=== PATIENT | male | born 1950 | race Caucasian/White ===

== ENCOUNTER 2017-12-28 15:29 | Inpatient (IN) | payer OTHER, MEDICARE ==
[~2017-12-28] VITALS: Ht 175.3 cm; Wt 94.4 kg
[2017-12-28 15:49] VITALS: BP 148/76; PULSE 66; RESP 17; TEMP 98.6; O2SAT 98
--- NOTE | 2017-12-28 16:12 | PD ---
HPI . Cook Act Chief Complaint: Psychiatric Symptoms Time Seen by Provider: 15:42 Travel History International Travel<30 days: No Contact w/Intl Traveler<30days: No Traveled to known affect area: No History of Present Illness HPI This patient presents to us as a Cook Act. He states that he took 17 Aleve this morning. He states that he subsequently called the police himself about an hour later because he "became paranoid." He reports depression in the recent past. He knows of no modifying factors. He reports that he is no longer suicidal [facility] Social History Tobacco Use: No Allergies-Medications (Allergen,Severity, Reaction): Coded Allergies: No Known Allergies (Unverified , 12/28/17) Review of Systems Except as stated in HPI: all other systems reviewed are Neg Physical Exam Narrative GENERAL: Awake and alert and in no acute distress. SKIN: Warm and dry. HEAD: Normocephalic/atraumatic. EYES: Pupils are equal. Extraocular movements are intact. NECK: Normal range of motion. CARDIOVASCULAR: Regular rate and rhythm. RESPIRATORY: Nonlabored respirations. MUSCULOSKELETAL: Atraumatic. NEUROLOGICAL: Nonfocal. PSYCHIATRIC: Good eye contact with the examiner. Does not appear to be responding to any internal stimuli. Data Data Last Documented VS Vital Signs Date Time Temp Pulse Resp B/P (MAP) Pulse Ox O2 Delivery O2 Flow Rate FiO2 12/28/17 15:49 98.6 66 17 148/76 (100) 98 Orders Orders Complete Blood Count With Diff (12/28/17 15:42) Comprehensive Metabolic Panel (12/28/17 15:42) Thyroid Stimulating Hormone (12/28/17 15:42) Psych Screen (12/28/17 15:42) Drug Screen, Random Urine (12/28/17 15:42) Alcohol (Ethanol) (12/28/17 15:42) Ns (Bolus) Inj (12/28/17 17:15) Labs Laboratory Tests Test 12/28/17 16:24 White Blood Count 13.3 TH/MM3 Red Blood Count 4.76 MIL/MM3 Hemoglobin 13.5 GM/DL Hematocrit 39.2 % Mean Corpuscular Volume 82.4 FL Mean Corpuscular Hemoglobin 28.4 PG Mean Corpuscular Hemoglobin Concent 34.5 % Red Cell Distribution Width 14.4 % Platelet Count 260 TH/MM3 Mean Platelet Volume 9.5 FL Neutrophils (%) (Auto) 86.9 % Lymphocytes (%) (Auto) 6.0 % Monocytes (%) (Auto) 6.4 % Eosinophils (%) (Auto) 0.4 % Basophils (%) (Auto) 0.3 % Neutrophils # (Auto) 11.5 TH/MM3 Lymphocytes # (Auto) 0.8 TH/MM3 Monocytes # (Auto) 0.8 TH/MM3 Eosinophils # (Auto) 0.0 TH/MM3 Basophils # (Auto) 0.0 TH/MM3 CBC Comment DIFF FINAL Differential Comment Blood Urea Nitrogen 12 MG/DL Creatinine 1.39 MG/DL Random Glucose 106 MG/DL Total Protein 7.9 GM/DL Albumin 4.1 GM/DL Calcium Level 9.0 MG/DL Alkaline Phosphatase 78 U/L Aspartate Amino Transf (AST/SGOT) 16 U/L Alanine Aminotransferase (ALT/SGPT) 15 U/L Total Bilirubin 1.0 MG/DL Sodium Level 123 MEQ/L Potassium Level 3.5 MEQ/L Chloride Level 85 MEQ/L Carbon Dioxide Level 26.1 MEQ/L Anion Gap 12 MEQ/L Estimat Glomerular Filtration Rate 51 ML/MIN Thyroid Stimulating Hormone 3rd Gen 1.570 uIU/ML Ethyl Alcohol Level LESS THAN 3 MG/DL MDM Medical Decision Making Medical Screen Exam Complete: Yes Emergency Medical Condition: Yes Differential Diagnosis Differential diagnosis includes but is not limited to depression with suicidal gesture, suicide attempt, suicidal ideation, attention seeking behavior. Narrative Course This patient presents to us as a Cook Act because of a suicidal gesture. Medical clearance labs are in process. CBC & BMP Diagram 12/28/17 16:24 Total Protein 7.9, Albumin 4.1, Calcium Level 9.0, Alkaline Phosphatase 78, Aspartate Amino Transf (AST/SGOT) 16, Alanine Aminotransferase (ALT/SGPT) 15, Total Bilirubin 1.0 IV normal saline has been ordered. Diagnosis Primary Impression: Medical clearance for psychiatric admission Additional Impression: Hyponatremia Condition: Stable Lily Valente MD December 28, 2017 16:12
[2017-12-28 16:40] LABS: AUTOMATED NEUTROPHIL # 11.5 TH/MM3 (1.8-7.7); BASOPHIL % 0.3 % (0.0-2.0); EOSINOPHIL % 0.4 % (0.0-4.0); HEMATOCRIT 39.2 % (39.0-51.0); HEMOGLOBIN 13.5 GM/DL (13.0-17.0); LYMPHOCYTE # 0.8 TH/MM3 (1.0-4.8); MEAN CELL VOLUME 82.4 FL (80.0-100.0); MEAN CORPUSCULAR HEMOGLOBIN 28.4 PG (27.0-34.0); MEAN CORPUSCULAR HGB CONC 34.5 % (32.0-36.0); MEAN PLATELET VOLUME 9.5 FL (7.0-11.0); MONO % 6.4 % (0.0-8.0); MONOCYTE # 0.8 TH/MM3 (0-0.9); NEUT % 86.9 % (16.0-70.0); PLATELET COUNT 260 TH/MM3 (150-450); RED BLOOD COUNT 4.76 MIL/MM3 (4.50-5.90); RED CELL DISTRIBUTION WIDTH 14.4 % (11.6-17.2); WHITE BLOOD COUNT 13.3 TH/MM3 (4.0-11.0)
[2017-12-28 16:54] LABS: ALBUMIN 4.1 GM/DL (3.4-5.0); ALT (GPT) 15 U/L (12-78); AST (GOT) 16 U/L (15-37); BICARBONATE 26.1 MEQ/L (21.0-32.0); BLOOD UREA NITROGEN 12 MG/DL (7-18); CHLORIDE 85 MEQ/L (98-107); CREATININE 1.39 MG/DL (0.60-1.30); GLOMERULAR FILTRATION RATE 51 ML/MIN (>89); GLUCOSE,RANDOM 106 MG/DL (74-106)
[2017-12-28 17:05] LABS: ALKALINE PHOSPHATASE 78 U/L (45-117); TOTAL PROTEIN 7.9 GM/DL (6.4-8.2)
[2017-12-28 17:09] LABS: SODIUM (NA) 123 MEQ/L (136-145)
[2017-12-28] MEDS ORDERED: SODIUM CHLOR 0.9% 1000 ML INJ 1,000 ML IV ONE (17:15)
--- NOTE | 2017-12-28 18:00 | PD ---
Data Data Last Documented VS Vital Signs Date Time Temp Pulse Resp B/P (MAP) Pulse Ox O2 Delivery O2 Flow Rate FiO2 12/28/17 15:49 98.6 66 17 148/76 (100) 98 Orders Orders Complete Blood Count With Diff (12/28/17 15:42) Comprehensive Metabolic Panel (12/28/17 15:42) Thyroid Stimulating Hormone (12/28/17 15:42) Psych Screen (12/28/17 15:42) Drug Screen, Random Urine (12/28/17 15:42) Alcohol (Ethanol) (12/28/17 15:42) Sodium Chlor 0.9% 1000 Ml Inj (Ns 1000 M (12/28/17 17:15) Electrocardiogram (12/28/17 ) Labs Laboratory Tests Test 12/28/17 16:24 White Blood Count 13.3 TH/MM3 Red Blood Count 4.76 MIL/MM3 Hemoglobin 13.5 GM/DL Hematocrit 39.2 % Mean Corpuscular Volume 82.4 FL Mean Corpuscular Hemoglobin 28.4 PG Mean Corpuscular Hemoglobin Concent 34.5 % Red Cell Distribution Width 14.4 % Platelet Count 260 TH/MM3 Mean Platelet Volume 9.5 FL Neutrophils (%) (Auto) 86.9 % Lymphocytes (%) (Auto) 6.0 % Monocytes (%) (Auto) 6.4 % Eosinophils (%) (Auto) 0.4 % Basophils (%) (Auto) 0.3 % Neutrophils # (Auto) 11.5 TH/MM3 Lymphocytes # (Auto) 0.8 TH/MM3 Monocytes # (Auto) 0.8 TH/MM3 Eosinophils # (Auto) 0.0 TH/MM3 Basophils # (Auto) 0.0 TH/MM3 CBC Comment DIFF FINAL Differential Comment Blood Urea Nitrogen 12 MG/DL Creatinine 1.39 MG/DL Random Glucose 106 MG/DL Total Protein 7.9 GM/DL Albumin 4.1 GM/DL Calcium Level 9.0 MG/DL Alkaline Phosphatase 78 U/L Aspartate Amino Transf (AST/SGOT) 16 U/L Alanine Aminotransferase (ALT/SGPT) 15 U/L Total Bilirubin 1.0 MG/DL Sodium Level 123 MEQ/L Potassium Level 3.5 MEQ/L Chloride Level 85 MEQ/L Carbon Dioxide Level 26.1 MEQ/L Anion Gap 12 MEQ/L Estimat Glomerular Filtration Rate 51 ML/MIN Thyroid Stimulating Hormone 3rd Gen 1.570 uIU/ML Ethyl Alcohol Level LESS THAN 3 MG/DL MDM Supervised Visit with NICHOLAS: No Narrative Course The patient was initially evaluated by the previous provider and signed out to me at the beginning of my shift pending admission for hyponatremia. See her note for further details. Briefly this is a 67-year-old male who presents voluntarily after intentionally taking 17 Aleve at around 930 this morning with an intent to harm himself. He was Cook acted by the previous provider. He was found to have a sodium of 123. He denies alcohol use or abuse. On my exam he is awake and alert. He was provided a liter of normal saline by the previous provider and will be admitted medically for further treatment and evaluation. Case discussed with hospitalist Dr. Ribeiro who will admit the patient to his service. Diagnosis Primary Impression: Hyponatremia Additional Impressions: Medical clearance for psychiatric admission Intentional drug overdose Qualified Codes: T50.902A - Poisoning by unspecified drugs, medicaments and biological substances, intentional self-harm, initial encounter Admitting Information Admitting Physician Requests: Observation Condition: Stable Shamar Figueroa MD December 28, 2017 18:00
--- NOTE | 2017-12-28 18:56 | HHI.HP ---
HPI Service [facility] Primary Care Physician Unknown Admission Diagnosis Intentional overdose, hyponatremia Diagnoses: (1) Intentional drug overdose Diagnosis: Principal (2) Hyponatremia Diagnosis: Principal (3) Renal insufficiency Diagnosis: Principal (4) Anxiety Diagnosis: Principal Travel History International Travel<30 Days: No Contact w/Intl Traveler <30 Da: No Traveled to Known Affected Are: No History of Present Illness This is a 67-year-old male w/ a PMH of Anxiety and Depression who presented to the ER under Cook Act after reportedly taking 17 tablets of Aleve at approx 9: 30am this morning in a suicide attempt. Pt reports fighting w/ his earlier today at which point he took Aleve in order to end his life. States he "got paranoid" and called the Police, brought to the ER under Cook Act. Denies ingestion of any other drugs or alcohol. On arrival, BP 148/76, HR 66, O2 sat 98% RA, Afebrile. WBC 13.3. Na 123. Creatinine 1.39, no previous labs for comparison. Alcohol less than 3. Review of Systems Except as stated in HPI: all other systems reviewed are Neg ROS: 14 point review of systems otherwise negative. Past Family Social History Past Medical History PMH: Anxiety and Depression Past Surgical History PAST SURGICAL HISTORY: None Allergies: Coded Allergies: No Known Allergies (Unverified , 12/28/17) Family History PAST FAMILY HISTORY: Reviewed. No h/o DM or CAD Social History PAST SOCIAL HISTORY: Negative for alcohol, tobacco or drugs. Physical Exam Vital Signs Vital Signs Date Time Temp Pulse Resp B/P (MAP) Pulse Ox O2 Delivery O2 Flow Rate FiO2 12/28/17 15:49 98.6 66 17 148/76 (100) 98 Physical Exam PE: GENERAL: Pleasant middle-aged male in no acute distress. Sitter at bedside. HEENT: PERRLA, EOMI. No scleral icterus or conjunctival pallor. No lid lag or facial droop. CARDIOVASCULAR: Regular rate and rhythm. No obvious murmurs to auscultation. No chest tenderness to palpation. RESPIRATORY: No obvious rhonchi or wheezing. Clear to auscultation. Breath sounds equal bilaterally. GASTROINTESTINAL: Abdomen soft, non-tender, nondistended. BS normal. MUSCULOSKELETAL: Extremities without clubbing, cyanosis, or edema. No obvious deformities. NEUROLOGICAL: Awake, alert and oriented x4. No focal neurologic deficits. Moving both upper and lower extremities spontaneously. Laboratory Laboratory Tests Test 12/28/17 16:24 White Blood Count 13.3 Red Blood Count 4.76 Hemoglobin 13.5 Hematocrit 39.2 Mean Corpuscular Volume 82.4 Mean Corpuscular Hemoglobin 28.4 Mean Corpuscular Hemoglobin Concent 34.5 Red Cell Distribution Width 14.4 Platelet Count 260 Mean Platelet Volume 9.5 Neutrophils (%) (Auto) 86.9 Lymphocytes (%) (Auto) 6.0 Monocytes (%) (Auto) 6.4 Eosinophils (%) (Auto) 0.4 Basophils (%) (Auto) 0.3 Neutrophils # (Auto) 11.5 Lymphocytes # (Auto) 0.8 Monocytes # (Auto) 0.8 Eosinophils # (Auto) 0.0 Basophils # (Auto) 0.0 CBC Comment DIFF FINAL Differential Comment Blood Urea Nitrogen 12 Creatinine 1.39 Random Glucose 106 Total Protein 7.9 Albumin 4.1 Calcium Level 9.0 Alkaline Phosphatase 78 Aspartate Amino Transf (AST/SGOT) 16 Alanine Aminotransferase (ALT/SGPT) 15 Total Bilirubin 1.0 Sodium Level 123 Potassium Level 3.5 Chloride Level 85 Carbon Dioxide Level 26.1 Anion Gap 12 Estimat Glomerular Filtration Rate 51 Thyroid Stimulating Hormone 3rd Gen 1.570 Ethyl Alcohol Level LESS THAN 3 Result Diagram: 12/28/17 1624 12/28/17 1624 Caprini VTE Risk Assessment Caprini VTE Risk Assessment: No/Low Risk (score <= 1) Caprini Risk Assessment Model Point Value = 1 Point Value = 2 Point Value = 3 Point Value = 5 Age 41-60 Minor surgery BMI > 25 kg/m2 Swollen legs Varicose veins or History of unexplained or recurrent spontaneous Oral contraceptives or hormone replacement Sepsis (< 1 month) Serious lung disease, including pneumonia (< 1 month) Abnormal pulmonary function Acute myocardial infarction Congestive heart failure (< 1 month) History of inflammatory bowel disease Medical patient at bed rest Age 61-74 Arthroscopic surgery Major open surgery (> 45 min) Laparoscopic surgery (> 45 min) Malignancy Confined to bed (> 72 hours) Immobilizing plaster cast Central venous access Age >= 75 History of VTE Family history of VTE Factor V Leiden Prothrombin [id number] Lupus anticoagulant Anticardiolipin antibodies Elevated serum homocysteine Heparin-induced thrombocytopenia Other congenital or acquired thrombophilia Stroke (< 1 month) Elective arthroplasty Hip, pelvis, or leg fracture Acute spinal cord injury (< 1 month) Prophylaxis Regimen Total Risk Factor Score Risk Level Prophylaxis Regimen 0-1 Low Early ambulation 2 Moderate Order ONE of the following: *Sequential Compression Device (SCD) *Heparin 5000 units SQ BID 3-4 Higher Order ONE of the following medications: *Heparin 5000 units SQ TID *Enoxaparin/Lovenox 40 mg SQ daily (WT < 150 kg, CrCl > 30 mL/min) *Enoxaparin/Lovenox 30 mg SQ daily (WT < 150 kg, CrCl > 10-29 mL/min) *Enoxaparin/Lovenox 30 mg SQ BID (WT < 150 kg, CrCl > 30 mL/min) AND/OR *Sequential Compression Device (SCD) 5 or more Highest Order ONE of the following medications: *Heparin 5000 units SQ TID (Preferred with Epidurals) *Enoxaparin/Lovenox 40 mg SQ daily (WT < 150 kg, CrCl > 30 mL/min) *Enoxaparin/Lovenox 30 mg SQ daily (WT < 150 kg, CrCl > 10-29 mL/min) *Enoxaparin/Lovenox 30 mg SQ BID (WT < 150 kg, CrCl > 30 mL/min) AND *Sequential Compression Device (SCD) Assessment and Plan Problem List: (1) Intentional drug overdose ICD Code: T50.902A - Poisoning by unspecified drugs, medicaments and biological substances, intentional self-harm, initialencounter Status: Acute (2) Hyponatremia ICD Code: E87.1 - Hypo-osmolality and hyponatremia Status: Acute (3) Renal insufficiency ICD Code: N28.9 - Disorder of kidney and ureter, unspecified (4) Anxiety ICD Code: F41.9 - Anxiety disorder, unspecified Assessment and Plan A/P: 1. Intentional Drug Overdose: reports taking 17 tablets of Aleve at approx 9: 30am this morning in suicide attempt. Alcohol negative. Check Urine Drug Screen, Tylenol and Salicylate level. Currently under Cook Act. Sitter. Consult Psych for further evaluation/treatment. 2. Hyponatremia: Na 123, denies alcohol or other drugs. IVF for hydration, check U/a, repeat BMP. Telemetry. 3. Renal Insufficiency: Creatinine 1.39, no previous labs for comparison, presumably new. IVF for hydration, check UA to eval for underlying UTI. Repeat labs in a.m. 4. Anxiety: Xanax prn, Pscyh to eval. 5. DVT Prophylaxis: SCD/Teds 6. Social work for d/c planning as needed. 7. Case discussed w/ day physician at length, labs/records/imaging reviewed by me. Physician Certification 2 Midnight Certification Type: Admission for Inpatient Services Order for Inpatient Services The services are ordered in accordance with Medicare regulations or non- Medicare payer requirements, as applicable. In the case of services not specified as inpatient-only, they are appropriately provided as inpatient services in accordance with the 2-midnight benchmark. Estimated LOS (days): 2 days is the estimated time the patient will need to remain in the hospital, assuming treatment plan goals are met and no additional complications. Post-Hospital Plan: Not yet determined Problem Qualifiers (1) Intentional drug overdose: Qualified Codes: T50.902A - Poisoning by unspecified drugs, medicaments and biological substances, intentional self-harm, initial encounter Xiomara Suresh MD December 28, 2017 18:56
[2017-12-28] MEDS ORDERED: LACTULOSE SYRUP 20 GM/30 ML CUP PO PRN (19:00)
[2017-12-28] MEDS ORDERED: SENNOSIDES 8.6 MG TAB PO PRN (19:00)
[2017-12-28] MEDS ORDERED: BISACODYL 10 MG SUPP RECTAL PRN (19:00)
[2017-12-28] MEDS ORDERED: METOCLOPRAMIDE HCL 10 MG/2 ML VIAL IV PUSH PRN (19:00)
[2017-12-28] MEDS ORDERED: MAGNESIUM HYDROXIDE SUSP 30 ML CUP PO PRN (19:00)
[2017-12-28] MEDS: SODIUM CHLOR 0.9% 1000 ML INJ 1,000 ML IV SCH (19:14)
[2017-12-28 19:15] VITALS: BP 162/85; PULSE 82; RESP 18; O2SAT 100
[2017-12-28] MEDS: DOCUSATE SODIUM 50 MG/SENNA 8.6 MG TAB PO SCH (19:47)
[2017-12-28] MEDS: ALPRAZolam 0.25 MG TAB PO PRN (19:48)
[2017-12-28 20:00] VITALS: BP 137/73; PULSE 77; RESP 18; TEMP 98.5; O2SAT 96
[2017-12-28 20:04] LABS: BICARBONATE 22.7 MEQ/L (21.0-32.0); CALCIUM 8.5 MG/DL (8.5-10.1); CREATININE 1.27 MG/DL (0.60-1.30)
[2017-12-28] MEDS: SODIUM CHLORIDE 0.9% FLUSH 10 ML FLUSH IV FLUSH PRN (21:11)
[2017-12-28] MEDS: SODIUM CHLORIDE 0.9% FLUSH 10 ML FLUSH IV FLUSH SCH (21:11)
[2017-12-29] VITALS (9 sets, daily range): BP systolic 120–152; BP diastolic 56–89; PULSE 51–61; RESP 16–18; TEMP 97–98.5; O2SAT 97–98
[2017-12-29 01:31] LABS: BILIRUBIN, URINE NEG (NEG); BLOOD, URINE NEG (NEG); GLUCOSE,URINE NEG (NEG); KETONE, URINE NEG (NEG); NITRITE,URINE NEG (NEG); PH, URINE 5.5 (5.0-8.5); URINE COLOR LIGHT-YELLOW (YELLW/STRAW); URINE LEUKOCYTE ESTERASE NEG (NEG)
[2017-12-29] MEDS: SODIUM CHLOR 0.9% 1000 ML INJ 1,000 ML IV SCH ×2 (04:53→14:53)
[2017-12-29] MEDS: ALPRAZolam 0.25 MG TAB PO PRN ×2 (05:37→13:57)
[2017-12-29 07:44] LABS: AUTOMATED NEUTROPHIL # 5.6 TH/MM3 (1.8-7.7); BASOPHIL % 0.5 % (0.0-2.0); EOSINOPHIL # 0.1 TH/MM3 (0-0.4); EOSINOPHIL % 1.6 % (0.0-4.0); HEMATOCRIT 37.2 % (39.0-51.0); HEMOGLOBIN 12.8 GM/DL (13.0-17.0); LYMPH % 12.3 % (9.0-44.0); LYMPHOCYTE # 0.9 TH/MM3 (1.0-4.8); MEAN CELL VOLUME 82.5 FL (80.0-100.0); MEAN CORPUSCULAR HEMOGLOBIN 28.3 PG (27.0-34.0); MEAN CORPUSCULAR HGB CONC 34.3 % (32.0-36.0); MEAN PLATELET VOLUME 9.6 FL (7.0-11.0); MONO % 10.3 % (0.0-8.0); MONOCYTE # 0.8 TH/MM3 (0-0.9); NEUT % 75.3 % (16.0-70.0); PLATELET COUNT 250 TH/MM3 (150-450); RED BLOOD COUNT 4.51 MIL/MM3 (4.50-5.90); RED CELL DISTRIBUTION WIDTH 14.2 % (11.6-17.2); WHITE BLOOD COUNT 7.4 TH/MM3 (4.0-11.0)
[2017-12-29 08:09] LABS: ALBUMIN 3.5 GM/DL (3.4-5.0); ALKALINE PHOSPHATASE 75 U/L (45-117); ALT (GPT) 16 U/L (12-78); AST (GOT) 14 U/L (15-37); BICARBONATE 28.7 MEQ/L (21.0-32.0); BLOOD UREA NITROGEN 11 MG/DL (7-18); CALCIUM 8.5 MG/DL (8.5-10.1); CHLORIDE 90 MEQ/L (98-107); CREATININE 1.18 MG/DL (0.60-1.30); GLOMERULAR FILTRATION RATE 61 ML/MIN (>89); GLUCOSE,RANDOM 102 MG/DL (74-106); SODIUM (NA) 129 MEQ/L (136-145); TOTAL BILIRUBIN ADULT 0.9 MG/DL (0.2-1.0); TOTAL PROTEIN 7.6 GM/DL (6.4-8.2)
[2017-12-29] MEDS: DOCUSATE SODIUM 50 MG/SENNA 8.6 MG TAB PO SCH ×2 (08:18→23:47)
[2017-12-29] MEDS: SODIUM CHLORIDE 0.9% FLUSH 10 ML FLUSH IV FLUSH SCH ×2 (08:18→23:47)
--- NOTE | 2017-12-29 09:55 | HHI.PR ---
Subjective Remarks Patient seen and examined this morning, their vitals are stable and the patient is afebrile. States he has a headache. Wants to know if he should be detoxed from taking all the Alieve. No other questions or concerns. Patient sitter at bedside. Objective Vital Signs Date Time Temp Pulse Resp B/P (MAP) Pulse Ox O2 Delivery O2 Flow Rate FiO2 12/29/17 08:00 98.2 57 18 126/58 (80) 98 12/29/17 04:00 97.0 56 18 140/69 (92) 98 12/29/17 00:00 97.0 51 16 131/73 (92) 98 12/28/17 20:39 12/28/17 20:00 98.5 77 18 137/73 (94) 96 12/28/17 19:15 82 18 162/85 (110) 100 Room Air 12/28/17 15:49 98.6 66 17 148/76 (100) 98 I/O 12/28/17 12/28/17 12/28/17 12/29/17 12/29/17 12/29/17 07:00 15:00 23:00 07:00 15:00 23:00 Intake Total 240 ml Balance 240 ml Intake Oral 240 ml # Voids 2 Result Diagram: 12/29/17 0623 12/29/17 0623 Objective Remarks GENERAL: Well-appearing, no acute distress SKIN: Warm and dry. HEAD: Normocephalic. EYES: No scleral icterus. No injection or drainage. NECK: Supple, trachea midline. No JVD or lymphadenopathy. CARDIOVASCULAR: Regular rate and rhythm without murmurs, gallops, or rubs. RESPIRATORY: Breath sounds equal bilaterally. No accessory muscle use. GASTROINTESTINAL: Abdomen soft, non-tender, nondistended. MUSCULOSKELETAL: No cyanosis, or edema. A/P Problem List: (1) Intentional drug overdose ICD Code: T50.902A - Poisoning by unspecified drugs, medicaments and biological substances, intentional self-harm, initialencounter Status: Acute (2) Hyponatremia ICD Code: E87.1 - Hypo-osmolality and hyponatremia Status: Acute Assessment and Plan In summary this is a 59-year-old male with a medical significant for anxiety and depression who presented to the ED under Cook act after intentional overdose with Aleve. Intentional overdose -Patient reported taking 17 Aleve with an attempt to end his life. -Currently under [facility] [employer] act. Psychiatry has been consulted. -Alcohol negative, tox screen negative Hyponatremia Hypokalemia -Status post 1 L bolus, continue IV fluids - replace potassium PO, declines IV replacement Discharge Planning D/C pending psych, currently under [facility] [employer] Act Problem Qualifiers (1) Intentional drug overdose: Qualified Codes: T50.902A - Poisoning by unspecified drugs, medicaments and biological substances, intentional self-harm, initial encounter Liseth Guy MD December 29, 2017 09:55
[2017-12-29] MEDS ORDERED: POTASSIUM CHLOR 20 MEQ PREMIX 100 ML IV SCH (10:00)
[2017-12-29] MEDS ORDERED: POTASSIUM CHLORIDE 10 MEQ CONTROLLED RELEASE TAB PO ONE ×2 (10:00→13:30)
[2017-12-29] MEDS ORDERED: ACETAMINOPHEN 325 MG TAB PO ONE (10:45)
--- NOTE | 2017-12-29 13:52 | EKG ---
Date Performed: 12/28/2017 Time Performed: 17:49:58 PTAGE: 67 years EKG: Sinus rhythm NORMAL ECG NO PREVIOUS TRACING DOCTOR: Eddi Todd Interpretating Date/Time 12/29/2017 13:48:49
--- NOTE | 2017-12-29 16:26 | PD.PSY.CON ---
Provisional Diagnosis Admission Date December 28, 2017 at 18:56 [place]. 1. Adjustment disorder with mixed disturbance of emotions and conduct 2. Rule out underlying anxiety disorder [place] II. Deferred History of Present Illness Service Psychiatry Consult Requested By Dr. Figueroa Reason for Consult Intentional drug overdose Primary Care Physician Unknown HPI Mr. Lane is a 67-year-old male with no reported past psychiatric history who was brought into the emergency department under a Cook act by law enforcement alleging that he had overdosed on 17 analgesic tablets. Cook act said Tylenol, but the patient in fact took Aleve. Patient has been admitted to the medical unit for further management of this overdose. Reviewing the electronic medical record, it appears this is patient's first visit to [facility]. Patient seen and examined. Chart reviewed. On my examination today, the patient reports that he overdosed on the Aleve impulsively because of an argument with his . He tells me "my got on my nerves." He admits that this overdose was suicidal in nature. He is happy to have survived although he does endorse ongoing occasional suicidal ideation with no specific plan. He denies any urge to hurt himself on the inpatient psychiatric unit. He complains of feeling very anxious and says that his sleep and appetite are poor. I can elicit no depressive or hypomanic/manic symptoms. He denies any audiovisual hallucinations. I can elicit no paranoia, no ideas of reference, no feelings of thought manipulation. No other delusional material elicited. No evidence of impairment in reality construction. Remainder of the psychiatric ROS is negative. No acute physical complaints. Past psychiatric history: The patient denies a history of psychiatric diagnosis. He denies a history of inpatient or outpatient psychiatric treatment. He denies a history of suicide attempts. Family history: The patient denies family history of mental illness or suicide. Chemical dependency history: Patient admits to a history of abuse of heroin. He denies any recent substance use. Social history: The patient lives with his and daughter. He has 5 children in total. He did not graduate high school. 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 He denies any history. Denies any legal history. Denies any access to guns or firearms. Review of Systems Except as stated in HPI: all other systems reviewed are Neg Past Family Social History Coded Allergies: No Known Allergies (Unverified , 12/28/17) Past Medical History See electronic medical record Current Medications Medications (Trade) Dose Ordered Sig/[place] Route Start Time Stop Time Status Last Admin Sodium Chloride 1,000 ml @ 100 mls/hr Q10H IV 12/28/17 18:53 12/28/17 19:14 (NS Flush) 2 ml UNSCH PRN IV FLUSH 12/28/17 19:00 12/28/17 21:11 (NS Flush) 2 ml BID IV FLUSH 12/28/17 21:00 12/28/17 21:11 (Reglan Inj) 5 mg Q6H PRN IV PUSH 12/28/17 19:00 (Rose-Colace) 1 tab BID PO 12/28/17 21:00 12/29/17 08:18 (Milk Of Magnesia Liq) 30 ml Q12H PRN PO 12/28/17 19:00 (Senokot) 17.2 mg Q12H PRN PO 12/28/17 19:00 (Dulcolax Supp) 10 mg DAILY PRN RECTAL 12/28/17 19:00 (Lactulose Liq) 30 ml DAILY PRN PO 12/28/17 19:00 (Xanax) 0.25 mg Q8H PRN PO 12/28/17 19:30 12/29/17 13:57 Patient's Strengths (min. 2) In a monitored setting. Verbally fluent. Physical Exam Physical examination completed by primary team. On my examination today, the patient appears to be in no acute physical distress. No motor abnormalities noted. Labs and vitals reviewed: Vital Signs Vital Signs Date Time Temp Pulse Resp B/P (MAP) Pulse Ox O2 Delivery O2 Flow Rate FiO2 12/29/17 13:50 60 12/29/17 12:00 98.2 18 141/89 (106) 97 12/28/17 19:15 Room Air I/O 12/29/17 12/29/17 12/30/17 08:00 16:00 00:00 Intake Total 240 ml Balance 240 ml Lab Results Test 12/28/17 16:24 12/28/17 19:20 12/29/17 00:15 12/29/17 06:23 White Blood Count 13.3 TH/MM3 7.4 TH/MM3 Red Blood Count 4.76 MIL/MM3 4.51 MIL/MM3 Hemoglobin 13.5 GM/DL 12.8 GM/DL Hematocrit 39.2 % 37.2 % Mean Corpuscular Volume 82.4 FL 82.5 FL Mean Corpuscular Hemoglobin 28.4 PG 28.3 PG Mean Corpuscular Hemoglobin Concent 34.5 % 34.3 % Red Cell Distribution Width 14.4 % 14.2 % Platelet Count 260 TH/MM3 250 TH/MM3 Mean Platelet Volume 9.5 FL 9.6 FL Neutrophils (%) (Auto) 86.9 % 75.3 % Lymphocytes (%) (Auto) 6.0 % 12.3 % Monocytes (%) (Auto) 6.4 % 10.3 % Eosinophils (%) (Auto) 0.4 % 1.6 % Basophils (%) (Auto) 0.3 % 0.5 % Neutrophils # (Auto) 11.5 TH/MM3 5.6 TH/MM3 Lymphocytes # (Auto) 0.8 TH/MM3 0.9 TH/MM3 Monocytes # (Auto) 0.8 TH/MM3 0.8 TH/MM3 Eosinophils # (Auto) 0.0 TH/MM3 0.1 TH/MM3 Basophils # (Auto) 0.0 TH/MM3 0.0 TH/MM3 CBC Comment DIFF FINAL DIFF FINAL Differential Comment Blood Urea Nitrogen 12 MG/DL 12 MG/DL 11 MG/DL Creatinine 1.39 MG/DL 1.27 MG/DL 1.18 MG/DL Random Glucose 106 MG/DL 104 MG/DL 102 MG/DL Total Protein 7.9 GM/DL 7.6 GM/DL Albumin 4.1 GM/DL 3.5 GM/DL Calcium Level 9.0 MG/DL 8.5 MG/DL 8.5 MG/DL Alkaline Phosphatase 78 U/L 75 U/L Aspartate Amino Transf (AST/SGOT) 16 U/L 14 U/L Alanine Aminotransferase (ALT/SGPT) 15 U/L 16 U/L Total Bilirubin 1.0 MG/DL 0.9 MG/DL Sodium Level 123 MEQ/L 124 MEQ/L 129 MEQ/L Potassium Level 3.5 MEQ/L 3.2 MEQ/L 2.9 MEQ/L Chloride Level 85 MEQ/L 89 MEQ/L 90 MEQ/L Carbon Dioxide Level 26.1 MEQ/L 22.7 MEQ/L 28.7 MEQ/L Anion Gap 12 MEQ/L 12 MEQ/L 10 MEQ/L Estimat Glomerular Filtration Rate 51 ML/MIN 56 ML/MIN 61 ML/MIN Thyroid Stimulating Hormone 3rd Gen 1.570 uIU/ML Ethyl Alcohol Level LESS THAN 3 MG/DL Salicylates Level LESS THAN 1.7 MG/DL Acetaminophen Level LESS THAN 2.0 MCG/ML Urine Color LIGHT-YELLOW Urine Turbidity CLEAR Urine pH 5.5 Urine Specific [place] 1.007 Urine Protein NEG mg/dL Urine Glucose (UA) NEG mg/dL Urine Ketones NEG mg/dL Urine Occult Blood NEG Urine Nitrite NEG Urine Bilirubin NEG Urine Urobilinogen LESS THAN 2.0 MG/DL Urine Leukocyte Esterase NEG Urine RBC 1 /hpf Microscopic Urinalysis Comment CULT NOT INDICATED Urine Opiates Screen NEG Urine Barbiturates Screen NEG Urine Amphetamines Screen NEG Urine Benzodiazepines Screen NEG Urine Cocaine Screen NEG Urine Cannabinoids Screen NEG Mental Status Examination Appearance: Disheveled Consciousness: Alert Orientation: x4 (No evidence of delirium) Motor Activity: Other (No motor abnormalities noted) Speech: Unremarkable Language: Adequate Fund of Knowledge: Adequate Attention and Concentration: Adequate (Able to spell world forward and backward.) Memory: Unremarkable Mood: Anxious Affect: Anxious Thought Process & Associations: Intact Thought Content: Appropriate Hallucination Type: None Delusion Type: None Suicidal Ideation: Yes Suicidal Plan: No Suicidal Intention: No (Contracts for safety on inpatient unit) Homicidal Ideation: No Homicidal Plan: No Homicidal Intention: No Insight: Poor Judgment: Poor Assessment & Plan Problem List: (1) Adjustment disorder with mixed disturbance of emotions and conduct ICD Codes: F43.25 - Adjustment disorder with mixed disturbance of emotions and conduct Assessment & Plan 67-year-old male with psychiatric history as detailed above who presents following NSAID overdose under [place] act. On my examination today, the patient endorses some ongoing vague suicidal ideation with no specific plan or intent. Initial overdose was apparently occasioned by argument with . Patient is in need of psychiatric observation and stabilization, and I will leave the Support[employer] act in place for now with plan for transfer to the inpatient psychiatric unit once he is medically cleared. Could also consider transferring the patient to [facility] once he no longer requires telemetry and so long as a bed is available. I would keep the sitter at the bedside for safety. Patient is complaining of anxiety and has Xanax available. This appears to be appropriately dosed but could be titrated to 0.5 mg per dose if needed so long his mental status does not worsen with larger dose. Defer psychopharmacologic management otherwise to the inpatient psychiatric team. Case discussed with RN. Thank you very much for this consultation. Please call or page with questions. Discharge Planning To inpatient psychiatry under Cook act once medically cleared +/- med psych. Woo Childers MD December 29, 2017 16:26
[2017-12-29] MEDS ORDERED: LORazepam 2 MG/ML VIAL IV PUSH ONE (20:30)
[2017-12-29] MEDS: SODIUM CHLORIDE 0.9% FLUSH 10 ML FLUSH IV FLUSH PRN (23:47)
[2017-12-30] MEDS: SODIUM CHLOR 0.9% 1000 ML INJ 1,000 ML IV SCH (00:14)
[2017-12-30 02:30] VITALS: BP 155/71; PULSE 50; RESP 18; TEMP 98.2; O2SAT 97
[2017-12-30 04:00] VITALS: BP 172/83; PULSE 66; RESP 22; TEMP 97.5; O2SAT 97
[2017-12-30] MEDS: SODIUM CHLORIDE 0.9% FLUSH 10 ML FLUSH IV FLUSH PRN (04:17)
[2017-12-30] MEDS: ALPRAZolam 0.25 MG TAB PO PRN (04:17)
[2017-12-30] MEDS ORDERED: LORazepam 2 MG/ML VIAL IV PUSH ONE (06:15)
[2017-12-30] MEDS: SODIUM CHLORIDE 0.9% FLUSH 10 ML FLUSH IV FLUSH SCH (07:53)
[2017-12-30] MEDS: DOCUSATE SODIUM 50 MG/SENNA 8.6 MG TAB PO SCH (07:57)
[2017-12-30 08:00] VITALS: BP 170/74; PULSE 80; RESP 16; TEMP 97.6; O2SAT 94
--- NOTE | 2017-12-30 08:37 | HHI.PR ---
Subjective Remarks Patient seen and examined this morning, BP is elevated. Patient was agitated overnight. Per nurse patient was standing on the bed. Expressed suicidal ideation. Was placed in restraints. This am patient asking if I can take him out of the restraints. States he was yelling last night because he was not given the right medication. Reports a medical history significant for DM and HTN. Objective Vital Signs Date Time Temp Pulse Resp B/P (MAP) Pulse Ox O2 Delivery O2 Flow Rate FiO2 12/30/17 04:00 97.5 66 22 172/83 (112) 97 12/30/17 02:30 98.2 50 18 155/71 (99) 97 12/29/17 20:00 98.2 59 18 152/69 (96) 97 12/29/17 18:32 59 12/29/17 16:00 98.5 61 18 120/56 (77) 98 12/29/17 13:50 60 12/29/17 12:00 98.2 58 18 141/89 (106) 97 I/O 12/29/17 12/29/17 12/29/17 12/30/17 12/30/17 12/30/17 07:00 15:00 23:00 07:00 15:00 23:00 Intake Total 240 ml 0 ml Output Total 600 ml 300 ml Balance 240 ml 0 ml -600 ml -300 ml Intake Oral 240 ml IV Total 0 ml Output Urine Total 600 ml 300 ml # Voids 2 # Bowel Movements 0 Result Diagram: 12/29/17 0623 12/29/17 1835 Objective Remarks GENERAL: Well-appearing, in 4 point restraints. SKIN: Warm and dry. HEAD: Normocephalic. EYES: No scleral icterus. No injection or drainage. NECK: Supple, trachea midline. No JVD or lymphadenopathy. CARDIOVASCULAR: Regular rate and rhythm without murmurs, gallops, or rubs. RESPIRATORY: Breath sounds equal bilaterally. No accessory muscle use. GASTROINTESTINAL: Abdomen soft, non-tender, nondistended. MUSCULOSKELETAL: No cyanosis, or edema. Psych: answers questions appropriately. A/P Problem List: (1) Intentional drug overdose ICD Code: T50.902A - Poisoning by unspecified drugs, medicaments and biological substances, intentional self-harm, initialencounter Status: Acute (2) Hyponatremia ICD Code: E87.1 - Hypo-osmolality and hyponatremia Status: Acute (3) Elevated BP without diagnosis of hypertension ICD Code: R03.0 - Elevated blood-pressure reading, without diagnosis of hypertension Assessment and Plan In summary this is a 59-year-old male with a medical significant for anxiety and depression who presented to the ED under Cook act after intentional overdose with Aleve. Intentional overdose -Patient reported taking 17 Aleve with an attempt to end his life. -Currently under Cook act. Psychiatry has been consulted: patient is in need of psych observation and stabilization, Cook Act still in place, plan to transfer to inpatient psych once medically clear -Alcohol negative, tox screen negative Hyponatremia Hypokalemia - resolved HTN - amlodipine 5 mg dialy - clonidine prn Case discussed with nurse May remove restraints one at a time beginning with legs, patient agrees to be calm and cooperative. Patient sitter is present. Discharge Planning Electrolytes are within normal limits. From medical standpoint the patient is stable, can be d/c to psych or med/psych pending bed availability. Problem Qualifiers (1) Intentional drug overdose: Qualified Codes: T50.902A - Poisoning by unspecified drugs, medicaments and biological substances, intentional self-harm, initial encounter Liseth Guy MD December 30, 2017 08:37
[2017-12-30] MEDS ORDERED: cloNIDine HCL 0.1 MG TAB PO PRN (08:45)
[2017-12-30 08:48] LABS: AUTOMATED NEUTROPHIL # 9.1 TH/MM3 (1.8-7.7); BASOPHIL % 0.4 % (0.0-2.0); EOSINOPHIL # 0.1 TH/MM3 (0-0.4); EOSINOPHIL % 0.5 % (0.0-4.0); HEMATOCRIT 37.9 % (39.0-51.0); HEMOGLOBIN 13.1 GM/DL (13.0-17.0); LYMPH % 9.2 % (9.0-44.0); MEAN CELL VOLUME 82.6 FL (80.0-100.0); MEAN CORPUSCULAR HEMOGLOBIN 28.6 PG (27.0-34.0); MEAN CORPUSCULAR HGB CONC 34.6 % (32.0-36.0); MEAN PLATELET VOLUME 9.8 FL (7.0-11.0); MONO % 8.8 % (0.0-8.0); NEUT % 81.1 % (16.0-70.0); PLATELET COUNT 267 TH/MM3 (150-450); RED BLOOD COUNT 4.59 MIL/MM3 (4.50-5.90); RED CELL DISTRIBUTION WIDTH 14.6 % (11.6-17.2); WHITE BLOOD COUNT 11.2 TH/MM3 (4.0-11.0)
[2017-12-30 08:58] LABS: BICARBONATE 27.5 MEQ/L (21.0-32.0); CALCIUM 9.2 MG/DL (8.5-10.1); CREATININE 1.17 MG/DL (0.60-1.30)
[2017-12-30] MEDS ORDERED: AMLO5 PO (10:13)
--- NOTE | 2017-12-30 10:13 | HHI.DCPOC ---
Discharge Care Plan Diagnosis: (1) Intentional drug overdose (2) Elevated BP without diagnosis of hypertension (3) Medical clearance for psychiatric admission Goals to Promote Your Health * To prevent worsening of your condition and complications * To maintain your health at the optimal level Directions to Meet Your Goals Take your medications as prescribed Follow your dietary instruction Follow activity as directed Keep your appointments as scheduled Take your immunizations and boosters as scheduled If your symptoms worsen call your PCP, if no PCP go to Urgent Care Center or Emergency Room Smoking is Dangerous to Your Health. Avoid second hand smoke Call the 24-hour hour crisis hotline for domestic abuse at Liseth Guy MD December 30, 2017 10:13
[2017-12-30] MEDS ORDERED: amLODIPine BESYLATE 5 MG TAB PO ONE (10:15)
[2017-12-30] MEDS ORDERED: ALPRAZolam 0.5 MG TAB PO PRN (11:30)
== END 2017-12-30 13:17 | DRG 918 ==
LOC: NEPD 15:29 → NEDA 18:10 → OBSVTOIN 18:56 → N05B 20:48
PROVIDERS: ADMIT Family Medicine; ATTEND Family Medicine
DX: T39.312A Poisoning by propionic acid derivatives, intentional self-harm, initial encounter (principal); E87.1 Hypo-osmolality and hyponatremia; I10 Essential (primary) hypertension; F11.20 Opioid dependence, uncomplicated; N28.9 Disorder of kidney and ureter, unspecified; E87.6 Hypokalemia; F43.25 Adjustment disorder with mixed disturbance of emotions and conduct; Z78.1 Physical restraint status
CPT/HCPCS: 80048; 80053; 80307; 81001; 84132; 84443; 85025; 93005; J2060; J2765; J3480; J7030

== ENCOUNTER 2017-12-30 12:49 | Inpatient (IN) | payer OTHER, MEDICARE ==
[~2017-12-30 12:49] MED LIST: AMLO5 PO
[2017-12-30] MEDS ORDERED: NICOTINE 21 MG/24 HR PATCH T-DERMAL PRN (13:30)
[2017-12-30] MEDS ORDERED: MAGNESIUM HYDROXIDE SUSP 30 ML CUP PO PRN (13:30)
[2017-12-30] MEDS ORDERED: diphenhydrAMINE HCL 50 MG CAP PO PRN (13:30)
[2017-12-30] MEDS ORDERED: LORazepam 2 MG/ML VIAL IV PUSH PRN ×4 (13:30)
[2017-12-30] MEDS ORDERED: FLUMAZENIL 0.5 MG/5 ML VIAL IV PUSH PRN (13:30)
[2017-12-30] MEDS ORDERED: LORazepam 1 MG TAB PO PRN (13:30)
[2017-12-30] MEDS ORDERED: ALUMINUM/MAGNESIUM/SIMETH 30 ML CUP PO PRN (13:30)
[2017-12-30 13:40] VITALS: BP 140/75; PULSE 89; RESP 18; O2SAT 95
[2017-12-30] MEDS: LORazepam 2 MG TAB PO PRN (20:32)
[2017-12-31] MEDS: LORazepam 2 MG TAB PO PRN (01:36)
[2017-12-31 01:37] VITALS: BP 150/88; PULSE 93; RESP 22; TEMP 97.7; O2SAT 96
[2017-12-31 06:00] VITALS: BP 141/68; PULSE 56; RESP 18; TEMP 97.5; O2SAT 93
[2017-12-31] MEDS: amLODIPine BESYLATE 5 MG TAB PO SCH (09:14)
--- NOTE | 2017-12-31 09:17 | PD.CONS ---
HPI Service [facility] Hospitalists Consult Requested By Woo Childers MD Reason for Consult Medical Management. Primary Care Physician Unknown Diagnoses: History of Present Illness This is a pleasant 67 y/o male who was brought in as [place] act after he took 17 tablets of Aleve in am on 12/28/17, on that moment the patient called the police himself, reported Depression, with Diagnosis of Intentional Drug overdose, Hyponatremia, Renal insufficiency, Anxiety disorder was admitted by Medical team on 12/28/17 and then transferred o Psychiatric unit for admission. was cleared for admission to Inpatient psychiatric Unit, with Diagnosis of Adjustment disorder with mixed disturbance of emotions and conduct, Rule out underlying anxiety disorder. Review of Systems Constitutional: DENIES: Fever, Chills, Change in appetite Endocrine: DENIES: Heat/cold intolerance Eyes: DENIES: Blurred vision, Eye pain Except as stated in HPI: all other systems reviewed are Neg Past Family Social History Allergies: Coded Allergies: No Known Allergies (Unverified , 12/28/17) Past Medical History Anxiety Depression Past Surgical History Denies any Surgical history. Reported Medications Reported Meds & Active Scripts Active Active Ordered Medications Current Medications Medications (Trade) Dose Ordered Sig/[place] Route Start Time Stop Time Status Last Admin (Benadryl) 50 mg HS PRN PO 12/30/17 13:30 (Tylenol) 650 mg Q4H PRN PO 12/30/17 13:30 01/01/18 09:23 (Milk Of Magnesia Liq) 30 ml DAILY PRN PO 12/30/17 13:30 (Mag-Al Plus Susp Liq) 30 ml Q6H PRN PO 12/30/17 13:30 01/01/18 10:35 (Habitrol 21 Mg Patch.24 Hr) 1 patch DAILY PRN T-DERMAL 12/30/17 13:30 (Norvasc) 5 mg DAILY PO 12/31/17 09:00 01/01/18 08:37 (Atarax) 50 mg Q6H PRN PO 12/31/17 14:00 01/01/18 02:15 (Benadryl Inj) 50 mg Q6H PRN IM 12/31/17 15:45 (Pill Splitter) 1 ea UNSCH PRN OTHER 12/31/17 21:45 Family History Mother with DM Social History Lives with his , denies toxic habits. Physical Exam Vital Signs Vital Signs Date Time Temp Pulse Resp B/P (MAP) Pulse Ox O2 Delivery O2 Flow Rate FiO2 12/31/17 06:00 97.5 56 18 141/68 (92) 93 12/31/17 01:37 97.7 93 22 150/88 (108) 96 12/30/17 13:40 89 18 140/75 (96) 95 Physical Exam GENERAL: No acute distress. HEENT: PERRLA, EOMI. No scleral icterus or conjunctival pallor. No lid lag or facial droop. CARDIOVASCULAR: Regular rate and rhythm. No obvious murmurs to auscultation. No chest tenderness to palpation. RESPIRATORY: No obvious rhonchi or wheezing. Clear to auscultation. Breath sounds equal bilaterally. GASTROINTESTINAL: Abdomen soft, non-tender, nondistended. BS normal. MUSCULOSKELETAL: Extremities without clubbing, cyanosis, or edema. No obvious deformities. NEUROLOGICAL: Awake, alert and oriented x4. No focal neurologic deficits. Moving both upper and lower extremities spontaneously. Imaging No new Imaging studies. Assessment and Plan Assessment and Plan 1. Intentional Drug Overdose: consulted to Psychiatry specialist 2. Adjustment disorder with mixed disturbance of emotions and conduct, Rule out underlying anxiety disorder. Psychiatry specialist as Attending Physician continue inpatient Psychiatric management. Performed multiple tests Hemoglobin A1C 6, Vitamin B12 875, Brain CT scan negative for organic pathology 3. Hyponatremia: Improving due to dehydration. 4. Renal Insufficiency: Improved. 5. Anxiety: continue management by Psychiatry specialist the patient was evaluated in the presence of nurse, also evaluated laboratory and Imaging studies no further management by Medicine continue Home medicines and follow by PCP once discharged. Internal medicine sign off the case. DVT Prophylaxis: SCD/Teds Code Status Full code. Discussed Condition With Patient and nurse. Jacoby Tellez MD December 31, 2017 09:17
[2017-12-31 10:11] LABS: BLOOD UREA NITROGEN 10 MG/DL (7-18); CALCIUM 9.6 MG/DL (8.5-10.1); CHLORIDE 95 MEQ/L (98-107); CREATININE 1.13 MG/DL (0.60-1.30); GLOMERULAR FILTRATION RATE 65 ML/MIN (>89); GLUCOSE,RANDOM 114 MG/DL (74-106); SODIUM (NA) 132 MEQ/L (136-145)
[2017-12-31 10:12] LABS: CHOLESTEROL 158 MG/DL (120-200)
[2017-12-31 10:15] LABS: CHOLESTEROL/ HDL RATIO 3.64 RATIO; HDL CHOLESTEROL 43.3 MG/DL (40.0-60.0); LDL CHOLESTEROL 93 MG/DL (0-99); TRIGLYCERIDES 110 MG/DL (42-150)
--- NOTE | 2017-12-31 14:05 | HHI.HP ---
Provisional Diagnosis Admission Date December 30, 2017 at 13:15 [place]. Adjustment disorder with mixed disturbances of emotion and conduct Certification of Person's Competence To Provide Express and Informed Consent I have personally examined Cameron Lane , a person being served at [facility] on, December 31, 2017 13:53. Express and informed consent means consent voluntarily given in writing, by a competent person, after sufficient explanation and disclosure of the subject matter involved to enable the person to make a knowing and willful decision without any element of force, fraud, deceit, duress, or other form of constraint or coercion. This person is 18 years of age or older, is not now known to be incompetent to consent to treatment with a guardian advocate, and does not have a health care surrogate or proxy currently making medical treatment decisions. I have found this person to be one of the following: [1500 ]xxxxxx Competent to provide express and informed consent, as defined above, for voluntary admission to this facility and is competent to provide express and informed consent for treatment. He/she has the consistent capacity to make well reasoned, willful, and knowing decisions concerning his or her medical or mental health treatment. The person fully and consistently understands the purpose of the admission for examination/placement and is fully capable of personally exercising all rights assured under [place] Incompetent to provide express and informed consent to voluntary admission, and this is incompetent to provide express and informed consent to treatment. The person must be transferred to involuntary status and a petition for a guardian advocate filed with the Circuit Court. [] Refusing to provide express and informed consent to voluntary admission but is competent to provide express and informed consent for treatment. The person must be discharged or transferred to involuntary status. Form shall be completed within 24 hours of a person's arrival at the receiving facility and filed in the clinical record of each person: 1. Admitted on a voluntary basis 2. Permitted to provide express and informed consent to his/her own treatment 3. Allowed to transfer from involuntary to voluntary status 4. Prior to permitting a person to consent to his or her own treatment after having been previously found incompetent to consent to treatment. History of Present Illness Capacity: Has Capacity HPI Patient is a 67-year-old male was initially admitted to the medical floor he would have affects health 12/28 through 12/30/17 visit [id number] under Cook act. He allegedly overdosed on Aleve after having a verbal argument with his . Urine toxicology at that hospitalization was negative with a negative alcohol level. He was seen in psychiatric consultation by Dr. Woo Childers, recommended further observation once she is medically cleared. Patient was medically cleared and transferred to this unit. At the present time patient sitting quietly in his room nurse during present throughout session patient is a solidly built male lim hair lim robles and balding. He states he lives with his and 21-year-old daughter gets along well with both of them. He also states that he argues somewhat more than occasionally with his these are verbal arguments. He states they bicker with each other frequently. He denies any episodes of physical violence pushing or shoving by either 1 of them. Patient denies any alcohol or drug use related to this. He states in the past has been prescribed low dose of Xanax. Patient denies any prior psychiatric contact or hospitalization her psychotropic medication. 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 He denies any suicidal homicidal ideation intent or plan at the present time denies any voices or visions. He does say he is still somewhat "nervous" staff states that prior to my seeing him he shown some mild drug-seeking behaviors focusing on benzodiazepines given her Ativan or Xanax. 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. He also has 4 adult children that live out of state. He denies any physical or sexual abuse. Is vague with any mental health history in his family. At this time for patient because of the capacity to sign on a voluntary basis lives on the [facility] sign voluntary. I did discuss medications with him will refrain from any substances of abuse including benzodiazepines or opiates will offer him Atarax as needed and observe her from of the 24-36 hours. Patient seems satisfied with this though somewhat disappointed. Hopefully he will return home to his family and he could make referral to outpatient mental health services Review of Systems Except as stated in HPI: all other systems reviewed are Neg Past Psych History Psychological trauma history Patient denies Violence risk - others (6 mos) Low Violence risk - self (6 mos) Low to moderate Lomotil prior suicide gestures Substance Abuse History Drugs/Alcohol past 12 months Distant past history of IV heroin abuse Past Family Social History Coded Allergies: No Known Allergies (Unverified , 12/28/17) Discontinued Scripts Amlodipine (Norvasc) 5 Mg Tab, 5 MG PO ONCE for hypertension, #30 TAB Prov:Liseth Guy MD 12/30/17 Current Medications Medications (Trade) Dose Ordered Sig/[place] Route Start Time Stop Time Status Last Admin (Benadryl) 50 mg HS PRN PO 12/30/17 13:30 (Tylenol) 650 mg Q4H PRN PO 12/30/17 13:30 (Milk Of Magnesia Liq) 30 ml DAILY PRN PO 12/30/17 13:30 (Mag-Al Plus Susp Liq) 30 ml Q6H PRN PO 12/30/17 13:30 (Habitrol 21 Mg Patch.24 Hr) 1 patch DAILY PRN T-DERMAL 12/30/17 13:30 (Romazicon Inj) 0.2 mg Q1M PRN IV PUSH 12/30/17 13:30 (Ativan) 1 mg Q4H PRN PO 12/30/17 13:30 12/30/17 15:32 (Ativan Inj) 1 mg Q4H PRN IV PUSH 12/30/17 13:30 (Ativan) 2 mg Q2H PRN PO 12/30/17 13:30 12/31/17 01:36 (Ativan Inj) 2 mg Q2H PRN IV PUSH 12/30/17 13:30 (Ativan Inj) 2 mg Q1H PRN IV PUSH 12/30/17 13:30 (Ativan Inj) 2 mg Q15M PRN IV PUSH 12/30/17 13:30 (Norvasc) 5 mg DAILY PO 12/31/17 09:00 12/31/17 09:14 Family Psych History Patient denies Social History Patient lives with for 30 years and is youngest of 5 children a 21-year- old daughter Patient's Strengths (min. 2) Patient verbal label access healthcare Physical Exam Patient medically cleared with prior hospitalization at the present time patient sitting quietly in his room is in no acute distress, is in no respiratory distress, no complaints of abdominal pain. Patient moving all 4 extremities without difficulty. No abnormal motor movements noted Vital Signs Vital Signs Date Time Temp Pulse Resp B/P (MAP) Pulse Ox O2 Delivery O2 Flow Rate FiO2 12/31/17 06:00 97.5 56 18 141/68 (92) 93 I/O 12/31/17 12/31/17 01/01/18 08:00 16:00 00:00 Intake Total 120 ml Balance 120 ml Lab Results Test 12/31/17 08:25 Blood Urea Nitrogen 10 MG/DL Creatinine 1.13 MG/DL Random Glucose 114 MG/DL Calcium Level 9.6 MG/DL Sodium Level 132 MEQ/L Potassium Level 3.6 MEQ/L Chloride Level 95 MEQ/L Carbon Dioxide Level 27.0 MEQ/L Anion Gap 10 MEQ/L Estimat Glomerular Filtration Rate 65 ML/MIN Triglycerides Level 110 MG/DL Cholesterol Level 158 MG/DL LDL Cholesterol 93 MG/DL HDL Cholesterol 43.3 MG/DL Cholesterol/HDL Ratio 3.64 RATIO Vitamin B12 Level 875 PG/ML Folate 6.0 NG/ML Mental Status Examination Appearance: Appropriate Consciousness: Alert Orientation: x4 Speech: Unremarkable Language: Adequate Fund of Knowledge: Adequate Attention and Concentration: Other (Fair) Memory: Unremarkable (Fair) Mood: Other (Euthymic to mildly dysphoric) Affect: Other (Good range and intensity) Thought Process & Associations: Intact Thought Content: Appropriate Hallucination Type: None Delusion Type: None Suicidal Ideation: No Suicidal Plan: No Suicidal Intention: No Homicidal Ideation: No Homicidal Plan: No Homicidal Intention: No Insight: Fair Judgment: Impulsive Assessment & Plan Problem List: (1) Adjustment disorder with mixed disturbance of emotions and conduct ICD Codes: F43.25 - Adjustment disorder with mixed disturbance of emotions and conduct Assessment & Plan Estimated LOS: days patient meets criteria for brief further observation and assessment. I feel does have capacity will the lift the Cook act allow patient to sign voluntary we will offer the patient Atarax for anxiety will refrain from benzodiazepines and opiates. Hopefully this will be a short stay and returned home with family Discharge Planning Return home with family referral to counseling and mental health services in the community Request HC Surrog/Guard Advoc?: No Addy Velarde MD December 31, 2017 14:05
[2017-12-31] MEDS: hydrOXYzine HCL 50 MG TAB PO PRN ×2 (14:29→20:24)
[2017-12-31] MEDS ORDERED: diphenhydrAMINE HCL 50 MG/ML VIAL IM PRN (15:45)
[2017-12-31 18:11] VITALS: BP 165/77; PULSE 67; RESP 16; TEMP 97.1; O2SAT 94
--- NOTE | 2017-12-31 20:23 | RADRPT ---
EXAM DATE/TIME: 12/31/2017 20:07 [place] COMPARISON: No previous studies available for comparison. INDICATIONS : Altered mental status RADIATION DOSE: 34.61 CTDIvol (mGy) MEDICAL HISTORY : Cerebrovascular disease. Hypertension. Diabtes SURGICAL HISTORY : None. ENCOUNTER: Initial ACUITY: 1 day PAIN SCALE: 0/10 LOCATION: cranial TECHNIQUE: Multiple contiguous axial images were obtained of the head. Using automated exposure control and adj ustment of the mA and/or kV according to patient size, radiation dose was kept as low as reasonably a chievable to obtain optimal diagnostic quality images. DICOM format image data is available electro nically for review and comparison. FINDINGS: CEREBRUM: Periventricular low attenuation change involving both cerebral hemispheres but most pronounced within the frontal lobes. Area of encephalomalacia involving the right frontal lobe. The ventricles are nor mal for age. No evidence of midline shift, mass lesion, hemorrhage or acute infarction. No extra-ax ial fluid collections are seen. POSTERIOR FOSSA: The cerebellum and brainstem are intact. The 4th ventricle is midline. The cerebellopontine angle i s unremarkable. EXTRACRANIAL: The visualized portion of the orbits is intact. SKULL: The calvaria is intact. No evidence of skull fracture. CONCLUSION: 1. No acute intracranial abnormality. 2. Area of encephalomalacia within the right frontal lobe. 3. Chronic small vessel ischemic change. Cruzito Thomas Jr., MD on December 31, 2017 at 20:20 Board Certified Radiologist. This report was verified electronically.
[2017-12-31 21:15] VITALS: BP 151/74; PULSE 70; RESP 18; TEMP 97.2; O2SAT 99
[2017-12-31] MEDS ORDERED: ONDANSETRON ODT 4 MG TAB PO ONE (21:45)
[2017-12-31] MEDS ORDERED: PILL SPLITTER OTHER PRN (21:45)
[2018-01-01] MEDS: hydrOXYzine HCL 50 MG TAB PO PRN ×2 (02:15→13:03)
[2018-01-01] MEDS: ACETAMINOPHEN 325 MG TAB PO PRN ×2 (02:16→09:23)
[2018-01-01 06:13] VITALS: PULSE 67; RESP 14; TEMP 96.2
[2018-01-01] MEDS: amLODIPine BESYLATE 5 MG TAB PO SCH (08:37)
[2018-01-01] MEDS ORDERED: AMLO5 PO (11:11)
[2018-01-01] MEDS ORDERED: HYDR50TA94 PO (11:11)
--- NOTE | 2018-01-01 11:16 | HHI.DS ---
Psychiatry Discharge Summary Inpatient Psychiatric care?: Yes Advance Directive: No Reason Not Provided: Education provided Mental Health AdvanceDirective: No Health Care Proxy: No Admission Admission Date December 30, 2017 at 13:15 Admission Diagnosis: (1) Adjustment disorder with mixed disturbance of emotions and conduct ICD Code: F43.25 - Adjustment disorder with mixed disturbance of emotions and conduct Brief History Patient is a 67-year-old male was initially admitted to the medical floor he would have affects health 12/28 through 12/30/17 visit [id number] under Cook act. He allegedly overdosed on Aleve after having a verbal argument with his . Urine toxicology at that hospitalization was negative with a negative alcohol level. He was seen in psychiatric consultation by Dr. Woo Childers, recommended further observation once she is medically cleared. Patient was medically cleared and transferred to this unit. At the present time patient sitting quietly in his room nurse during present throughout session patient is a solidly built male lim hair lim robles and balding. He states he lives with his and 21-year-old daughter gets along well with both of them. He also states that he argues somewhat more than occasionally with his these are verbal arguments. He states they bicker with each other frequently. He denies any episodes of physical violence pushing or shoving by either 1 of them. Patient denies any alcohol or drug use related to this. He states in the past has been prescribed low dose of Xanax. Patient denies any prior psychiatric contact or hospitalization her psychotropic medication. 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 He denies any suicidal homicidal ideation intent or plan at the present time denies any voices or visions. He does say he is still somewhat "nervous" staff states that prior to my seeing him he shown some mild drug-seeking behaviors focusing on benzodiazepines given her Ativan or Xanax. 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 He also has 4 adult children that live out of state. He denies any physical or sexual abuse. Is vague with any mental health history in his family. At this time for patient because of the capacity to sign on a voluntary basis lives on the [facility] sign voluntary. I did discuss medications with him will refrain from any substances of abuse including benzodiazepines or opiates will offer him Atarax as needed and observe her from of the 24-36 hours. Patient seems satisfied with this though somewhat disappointed. Hopefully he will return home to his family and he could make referral to outpatient mental health services Tobacco Use In Past 30 Days: No Tobacco Past 30 Days Alcohol Use: Never Hospital Course Patient's hospital course was uneventful. He had a good night last night did use the Atarax but had no other problems sleeping. He is calm with me today. Patient is seen today with nurse Lizette, chart reviewed, patient compliant medications. Patient denies suicidality or homicidality voices or visions. Says he has had good conversations with his and he wishes to go home today. At this time he feels reached maximum benefit of this hospitalization. We will allow patient to be discharged today will be given a prescription for Atarax 50 mg #15 juice as needed for anxiety every 8 hours. We will refer him through his PCP refer him through to mental health services and counseling at this community Results Blood Pressure 151 / 74 Vital Signs Date Time Temp Pulse Resp B/P (MAP) Pulse Ox O2 Delivery O2 Flow Rate FiO2 01/01/18 06:13 96.2 67 14 12/31/17 21:15 99 Laboratory Tests Test 12/31/17 08:25 Random Glucose 114 MG/DL (74-106) Sodium Level 132 MEQ/L (136-145) Chloride Level 95 MEQ/L (98-107) Estimat Glomerular Filtration Rate 65 ML/MIN (>89) Laboratory Results Test 12/31/17 08:25 Cholesterol Level 158 MG/DL (120-200) HDL Cholesterol 43.3 MG/DL (40.0-60.0) Hemoglobin A1c 6.0 % (4.3-6.0) LDL Cholesterol 93 MG/DL (0-99) Triglycerides Level 110 MG/DL (42-150) Summary of Procedures None done Imaging Last Impressions Head CT 12/31/17 0000 Signed Impressions: Service Date/Time: Sunday, December 31, 2017 20:07 - CONCLUSION: 1. No acute intracranial abnormality. 2. Area of encephalomalacia within the right frontal lobe. 3. Chronic small vessel ischemic change. Cruzito Thomas Jr., MD Pending results at discharge: No Medications # of Antipsychotic meds at D/C: 0 Approp Antipsych med options 1 - Minimum of three failed multiple trials of monotherapy. 2 - Documented plan to taper to monotherapy due to previous use of multiple meds OR cross-taper in progress at D/C. 3 - Documentation of augmentation of Clozapine. 4 - Justification other than those listed in allowable values 1-3, document here : Discharge Discharge Date: January 01, 2018 Discharge Diagnosis: (1) Adjustment disorder with mixed disturbance of emotions and conduct Diagnosis: Principal ICD Code: F43.25 - Adjustment disorder with mixed disturbance of emotions and conduct Pt Condition on Discharge: Stable Discharge Disposition: Discharge Home Discharge Instructions Diet Instructions: As Tolerated, No Restrictions Activities you can perform: Regular-No Restrictions Scheduled Appointment: [facility] mental health services and counseling Discharge Time > 30 minutes Mental Status Examination Appearance: Appropriate Consciousness: Alert Orientation: x4 Speech: Unremarkable Language: Adequate Fund of Knowledge: Adequate Attention and Concentration: Other (Fair) Memory: Unremarkable (Fair) Mood: Other (Euthymic to mildly dysphoric) Affect: Other (Good range and intensity) Thought Process & Associations: Intact Thought Content: Appropriate Hallucination Type: None Delusion Type: None Suicidal Ideation: No Suicidal Plan: No Suicidal Intention: No Homicidal Ideation: No Homicidal Plan: No Homicidal Intention: No Insight: Fair Judgment: Impulsive Discharge/Advance Care Plan Health Problems: (1) Adjustment disorder with mixed disturbance of emotions and conduct Goals to promote your health * To prevent worsening of your condition and complications * To maintain your health at the optimal level Directions to meet your goals Take your medications as prescribed Follow your dietary instruction Follow activity as directed Keep your appointments as scheduled Take your immunizations and boosters as scheduled If your symptoms worsen call your PCP, if no PCP go to Urgent Care Center or Emergency Room For 05/03 questions related to your inpatient stay or results of tests pending at discharge, please contact Dr. Addy Velarde at Smoking is Dangerous to Your Health. Avoid second hand smoking Addy Velarde MD January 01, 2018 11:16
== END 2018-01-01 17:05 | disposition home or self-care (01) | DRG 882 ==
LOC: H270 13:15 → H250 17:42
PROVIDERS: ADMIT Psychiatry & Neurology Psychiatry; ATTEND Psychiatry & Neurology Psychiatry
DX: F43.25 Adjustment disorder with mixed disturbance of emotions and conduct (principal); E87.1 Hypo-osmolality and hyponatremia; T50.902A Poisoning by unspecified drugs, medicaments and biological substances, intentional self-harm, initial encounter; E86.0 Dehydration; N28.9 Disorder of kidney and ureter, unspecified; F41.9 Anxiety disorder, unspecified; Z83.3 Family history of diabetes mellitus; Z76.5 Malingerer [conscious simulation]
CPT/HCPCS: 70450; 80048; 80061; 82607; 82746; 83036

== ENCOUNTER 2018-01-05 21:21 | Observation (INO) | payer MEDICARE, OTHER ==
[~2018-01-05 21:21] MED LIST changes: +ATOR20TA15 PO; +HYDR50TA94 PO; +METF500T PO
[2018-01-06] VITALS (8 sets, daily range): BP systolic 121–173; BP diastolic 69–78; PULSE 55–80; RESP 18–20; TEMP 97.5–98.3; O2SAT 94–99
[2018-01-06] MEDS: SODIUM CHLOR 0.9% 1000 ML INJ 1,000 ML IV SCH ×2 (00:43→08:13)
[2018-01-06] MEDS ORDERED: NALOXONE HCL 0.4 MG/ML AMP IV PUSH PRN (00:45)
[2018-01-06] MEDS ORDERED: SODIUM CHLORIDE 0.9% FLUSH 10 ML FLUSH IV FLUSH PRN (00:45)
--- NOTE | 2018-01-06 01:26 | HHI.HP ---
[facility] Service [facility] Primary Care Physician Unknown Admission Diagnosis Diagnoses: Chief Complaint: Chest pain, shortness of breath, suicidal ideations Travel History International Travel<30 Days: No Contact w/Intl Traveler <30 Da: No History of Present Illness 67-year-old male with a history of hypertension, COPD ,diabetes, anxiety and depression presented to the ED with suicidal ideations, chest pain and shortness of breath. Upon examination in [place] patient was found to have a sodium of 124 and was very anxious. He was given Haldol, benadyl and Ativan and sent to the main. Upon examination in the CDU patient is sleepy and not answering many questions. Patient is mostly Nepali speaking and is does deny pain. Patient appears comfortable and not in any distress. Sitter is at the bedside. Patient was just recently seen in the psychiatric department on January 03 for suicidal ideations as well. Review of Systems ROS Limitations: Other (sedated) Past Family Social History Past Medical History Hypertension Diabetes COPD Anxiety Depression Past Surgical History Patient denies any surgical history Reported Medications Reported Meds & Active Scripts Active Hydroxyzine HCl 50 Mg Tab 50 Mg PO Q6H PRN Norvasc (Amlodipine Besylate) 5 Mg Tab 5 Mg PO DAILY Reported Atorvastatin (Atorvastatin Calcium) 20 Mg Tab 20 Mg PO HS Metformin (Metformin HCl) 500 Mg Tab 500 Mg PO DAILY With a meal Allergies: Coded Allergies: haloperidol (Verified Allergy, Severe, ITCHING & CHEST PAIN, 01/05/18) Active Ordered Medications Current Medications Medications (Trade) Dose Ordered Sig/[place] Route Start Time Stop Time Status Last Admin Sodium Chloride 1,000 ml @ 100 mls/hr Q10H IV 01/06/18 00:43 (NS Flush) 2 ml UNSCH PRN IV FLUSH 01/06/18 00:45 (NS Flush) 2 ml BID IV FLUSH 01/06/18 09:00 (Narcan Inj) 0.4 mg UNSCH PRN IV PUSH 01/06/18 00:45 Family History Patient denies any family history, no diabetes or CAD Social History Patient denies any tobacco, alcohol or illicit drug use Physical Exam Physical Exam GENERAL: This is a well-nourished, well-developed patient, in no apparent distress. SKIN: No rashes, ecchymoses or lesions. Cool and dry. HEAD: Atraumatic. Normocephalic. No temporal or scalp tenderness. EYES: Pupils equal round and reactive. CARDIOVASCULAR: Regular rate and rhythm without murmurs, gallops, or rubs. RESPIRATORY: Clear to auscultation. Breath sounds equal bilaterally. No wheezes , rales, or rhonchi. GASTROINTESTINAL: Abdomen soft, non-tender, nondistended. MUSCULOSKELETAL: Extremities without clubbing, cyanosis, or edema. Negative Homans sign bilaterally. NEUROLOGICAL: Awake and alert.Normal speech. Caprini VTE Risk Assessment Caprini VTE Risk Assessment: No/Low Risk (score <= 1) Caprini Risk Assessment Model Point Value = 1 Point Value = 2 Point Value = 3 Point Value = 5 Age 41-60 Minor surgery BMI > 25 kg/m2 Swollen legs Varicose veins or History of unexplained or recurrent spontaneous Oral contraceptives or hormone replacement Sepsis (< 1 month) Serious lung disease, including pneumonia (< 1 month) Abnormal pulmonary function Acute myocardial infarction Congestive heart failure (< 1 month) History of inflammatory bowel disease Medical patient at bed rest Age 61-74 Arthroscopic surgery Major open surgery (> 45 min) Laparoscopic surgery (> 45 min) Malignancy Confined to bed (> 72 hours) Immobilizing plaster cast Central venous access Age >= 75 History of VTE Family history of VTE Factor V Leiden Prothrombin [id number] Lupus anticoagulant Anticardiolipin antibodies Elevated serum homocysteine Heparin-induced thrombocytopenia Other congenital or acquired thrombophilia Stroke (< 1 month) Elective arthroplasty Hip, pelvis, or leg fracture Acute spinal cord injury (< 1 month) Prophylaxis Regimen Total Risk Factor Score Risk Level Prophylaxis Regimen 0-1 Low Early ambulation 2 Moderate Order ONE of the following: *Sequential Compression Device (SCD) *Heparin 5000 units SQ BID 3-4 Higher Order ONE of the following medications: *Heparin 5000 units SQ TID *Enoxaparin/Lovenox 40 mg SQ daily (WT < 150 kg, CrCl > 30 mL/min) *Enoxaparin/Lovenox 30 mg SQ daily (WT < 150 kg, CrCl > 10-29 mL/min) *Enoxaparin/Lovenox 30 mg SQ BID (WT < 150 kg, CrCl > 30 mL/min) AND/OR *Sequential Compression Device (SCD) 5 or more Highest Order ONE of the following medications: *Heparin 5000 units SQ TID (Preferred with Epidurals) *Enoxaparin/Lovenox 40 mg SQ daily (WT < 150 kg, CrCl > 30 mL/min) *Enoxaparin/Lovenox 30 mg SQ daily (WT < 150 kg, CrCl > 10-29 mL/min) *Enoxaparin/Lovenox 30 mg SQ BID (WT < 150 kg, CrCl > 30 mL/min) AND *Sequential Compression Device (SCD) Assessment and Plan Assessment and Plan 67-year-old male with a history of hypertension, COPD ,diabetes, anxiety and depression presented to the ED with suicidal ideations, chest pain and shortness of breath. Suicidal ideations patient with a history of anxiety and depression -Patient is under a Cook act, consult psychiatry -Sitter Chest pain, atypical, likely due to anxiety rule out ACS Troponin 0.02, EKG reviewed and shows sinus rhythm -Serial troponin and EKGs -Monitor telemetry -Nitro prn Hypertension, chronic -Resume home meds, Norvasc -Monitor vitals -Vasotec prn COPD, chronic -DuoNeb scheduled and as needed Diabetes, chronic -Accu-Cheks with sliding scale insulin -Hold metformin while in hospital or until patient is eating well DVT prophylaxis: SCDs Discussed Condition With Patient and Dulce Ni January 06, 2018 01:26
[2018-01-06] MEDS ORDERED: DEXTROSE 50% IN WATER 50 ML VIAL(D50) IV PUSH PRN (01:30)
[2018-01-06] MEDS ORDERED: RESP: ALBUTEROL 2.5 MG/IPRATROPIUM 0.5 MG NEB (PRN) NEB (01:30)
[2018-01-06] MEDS ORDERED: GLUCAGON 1 MG/ML VIAL OTHER PRN (01:30)
[2018-01-06] MEDS ORDERED: NITROGLYCERIN 0.4 MG SL 25 TABS/BTL SL PRN (02:00)
[2018-01-06] MEDS ORDERED: ENALAPRILAT 1.25 MG/ML VIAL IV PUSH PRN (02:00)
[2018-01-06 02:55] LABS: BICARBONATE 29.5 MEQ/L (21.0-32.0); BLOOD UREA NITROGEN 9 MG/DL (7-18); CALCIUM 8.9 MG/DL (8.5-10.1); CHLORIDE 93 MEQ/L (98-107); CREATININE 1.06 MG/DL (0.60-1.30); GLOMERULAR FILTRATION RATE 69 ML/MIN (>89); GLUCOSE,RANDOM 96 MG/DL (74-106); SODIUM (NA) 132 MEQ/L (136-145)
[2018-01-06 02:58] LABS: TROPONIN I LESS THAN 0.02 NG/ML (0.02-0.05)
[2018-01-06] MEDS: RESP: ALBUTEROL 2.5 MG/IPRATROPIUM 0.5 MG NEB (SCH) NEB ×4 (03:25→20:31)
[2018-01-06] MEDS ORDERED: POTASSIUM CHLORIDE 10 MEQ CONTROLLED RELEASE TAB PO ONE (07:30)
[2018-01-06] MEDS: INSULIN ASPART SUPPLEMENTAL SCALE SQ SCH ×3 (08:11→18:03)
[2018-01-06] MEDS: SODIUM CHLORIDE 0.9% FLUSH 10 ML FLUSH IV FLUSH SCH ×2 (08:13→20:46)
[2018-01-06] MEDS ORDERED: amLODIPine BESYLATE 5 MG TAB PO SCH (09:00)
--- NOTE | 2018-01-06 09:57 | HHI.PR ---
Subjective Remarks Follow-up on patient with complaints of chest pain and suicidal ideation. Patient seen and examined. Patient denies any complaints of chest pain this morning. He denies any fever chills. Denies any shortness of breath. Denies any nausea, vomiting or abdominal pain. Denies any urinary or bowel difficulties. His only complaint this morning is feeling anxious. Discussed briefly with Dr. Wells who is well-known to the patient from previous admission. Patient has strong family history of depression in both mother and sister have committed suicide. Objective Vitals Vital Signs Date Time Temp Pulse Resp B/P (MAP) Pulse Ox O2 Delivery O2 Flow Rate FiO2 01/06/18 08:00 97.8 56 18 173/70 (104) 96 01/06/18 04:46 98.2 72 18 145/78 (100) 96 I/O 01/05/18 01/05/18 01/05/18 01/06/18 01/06/18 01/06/18 07:00 15:00 23:00 07:00 15:00 23:00 Intake Total 50 ml 200 ml Balance 50 ml 200 ml Intake Oral 50 ml 200 ml Result Diagram: 01/06/18 0210 Objective Remarks GENERAL: This is a well-nourished, well-developed male patient, in no apparent distress. Awake and alert. Sitter is at the bedside. SKIN: No rashes, ecchymoses or lesions. Cool and dry. HEENT: Atraumatic. Normocephalic. Pupils equal round and reactive. EOMI. sclera anicteric. Nose without any drainage or discharge. Airway patent. CARDIOVASCULAR: Regular rate and rhythm without murmurs, gallops, or rubs. RESPIRATORY: Mild expiratory wheezing noted otherwise clear. Fair air entry bilaterally. Breath sounds equal bilaterally. GASTROINTESTINAL: Abdomen soft, non-tender, nondistended. +BS MUSCULOSKELETAL: Extremities without clubbing, cyanosis, or edema. NEUROLOGICAL: Awake and alert. Able to move all extremities spontaneously. No focal neurologic finding appreciated. Normal speech. PSYCHIATRIC: Calm and cooperative with examination Procedures None A/P Assessment and Plan 67-year-old male with a history of hypertension, COPD ,diabetes, anxiety and depression presented to the ED with suicidal ideations, chest pain and shortness of breath. Suicidal ideations patient with a history of anxiety and depression -Patient is under a [place] act, consult psychiatry -Sitter at bedside Chest pain, atypical, likely due to anxiety rule out ACS Troponin 0.02, EKG reviewed and shows sinus rhythm -Continue to trend cardiac enzymes and EKGs -Monitor telemetry -Nitro prn Hypertension, chronic -continue on Norvasc -Vasotec prn -Continue to monitor BP and adjust treatment accordingly Hypokalemia K 3.2 -P.o. and IV repletion ordered -Obtain mag level -Repeat BMP in a.m. to monitor trend Hyponatremia, mild, asymptomatic -On IV fluids -Repeat BMP in a.m. COPD, chronic Patient quit smoking 10 years ago -DuoNeb scheduled and as needed Diabetes, chronic -Accu-Cheks with sliding scale insulin -Hold metformin while in hospital or until patient is eating well DVT prophylaxis: SCDs Discharge Planning Possible discharge later today to inpatient psychiatry if patient rules out for ACS Laurie Bauman January 06, 2018 09:57
[2018-01-06] MEDS ORDERED: hydrOXYzine HCL 50 MG TAB PO PRN (10:30)
[2018-01-06] MEDS ORDERED: metFORMIN HCL 500 MG TAB PO SCH (10:30)
--- NOTE | 2018-01-06 10:35 | PD.PSY.CON ---
Provisional Diagnosis Admission Date January 05, 2018 at 23:25 [place] I. Major depressive disorder, recurrent, severe, without psychosis, generalized anxiety disorder [place] II. Deferred [place] III. Diabetes, hypertension, dyslipidemia [place] IV. Family conflicts [place] V. 45 History of Present Illness Service Psychiatry Consult Requested By ER team Reason for Consult Suicidal ideation Primary Care Physician Unknown HPI The patient is a 67-year-old bilingual man, domiciled with his in [facility], retired, supported by Social Security, with psychiatric history of depression and anxiety, he was recently discharged from psychiatry in [place] after 2 days hospitalization in January 01, 2018, he was under the care of Dr. Velarde, documentation reviewed, one suicidal attempt by overdose, with a medical history of hypertension, COPD ,diabetes, who presented to the ED with suicidal ideations, chest pain and shortness of breath. Upon examination in [place] patient was found to have a sodium of 124 and was very anxious. He was given Haldol, benadyl and Ativan and sent to the main. Upon examination in the CDU patient is sleepy and not answering many questions. Patient is mostly Peruvian speaking and is does deny pain. Patient appears comfortable and not in any distress. Sitter is at the bedside. Patient was just recently seen in the psychiatric department on January 03 for suicidal ideations as well. She was consulted to psychiatry to assess suicidal ideation. On psychiatric evaluation the patient is found sleeping, but arousable. The patient reports that he is very depressed. He says that since he was discharged his depression has been worsening day by day. Along with his depression the patient also has "a lot of uncontrollable anxiety". Patient reports that he cannot see the future, he feels very hopeless, helpless, worthless, and he has constant thoughts of harming himself. Patient states that he is willing to take medications to get better, "but I need and orientation in my life". Patient also reports poor sleep at night, poor appetite, lack of motivation and energy. He is very anxious throughout the day. He denies visual and auditory hallucinations. The patient is goal-directed, logical, coherent and relevant. No loosening of associations, no paranoia, no delusions, no ideas of reference, no fluctuation of consciousness, attention deficit are present during my evaluation. He is completely oriented 3. The patient denies the use of illegal drugs and alcohol. Review of Systems Constitutional: DENIES: Diaphoretic episodes, Fatigue, Fever, Weight gain, Weight loss, Chills, Dizziness, Change in appetite, Night Sweats Endocrine: DENIES: Heat/cold intolerance, Polydipsia, Polyuria, Polyphagia Eyes: DENIES: Blurred vision, Diplopia, Eye inflammation, Eye pain, Vision loss , Photosensitivity, Double Vision Ears, nose, mouth, throat: DENIES: Tinnitus, Hearing loss, Vertigo, Nasal discharge, Oral lesions, Throat pain, Hoarseness, Ear Pain, Running Nose, Epistaxis, Sinus Pain, Toothache, Odynophagia Respiratory: DENIES: Apneas, Cough, Snoring, Wheezing, Hemoptysis, Sputum production, Shortness of breath Gastrointestinal: DENIES: Abdominal pain, Black stools, Bloody stools, Constipation, Diarrhea, Nausea, Vomiting, Difficulty Swallowing, Anorexia Genitourinary: DENIES: Sexual dysfunction, Urinary frequency, Urinary incontinence, Urgency, Hematuria, Dysuria, Nocturia, Penile Discharge, Testicular Pain, Testicular Swelling Musculoskeletal: DENIES: Joint pain, Muscle aches, Stiffness, Joint Swelling, Back pain, Neck pain Integumentary: DENIES: Abnormal pigmentation, Nail changes, Pruritus, Rash Hematologic/lymphatic: DENIES: Bruising, Lymphadenopathy Immunologic/allergic: DENIES: Eczema, Urticaria Psychiatric: COMPLAINS OF: Depression, Suicidal Ideation, DENIES: Anxiety, Confusion, Mood changes, Hallucinations, Agitation, Homicidal Ideation, Delusions Past Family Social History Coded Allergies: haloperidol (Verified Allergy, Severe, ITCHING & CHEST PAIN, 01/05/18) Active Scripts Hydroxyzine HCl (Hydroxyzine HCl) 50 Mg Tab, 50 MG PO Q6H Y for ANXIETY, #15 TAB 0 Refills Prov:Addy Velarde MD 01/01/18 Amlodipine (Norvasc) 5 Mg Tab, 5 MG PO DAILY for health, #30 TAB 0 Refills Prov:Adyd Velarde MD 01/01/18 Reported Medications Atorvastatin (Atorvastatin) 20 Mg Tab, 20 MG PO HS for Cholesterol Management, # 30 TAB 0 Refills 01/05/18 Metformin (Metformin) 500 Mg Tab, 500 MG PO DAILY for Blood Sugar Management, # 30 TAB 0 Refills With a meal 01/05/18 Discontinued Scripts Amlodipine (Norvasc) 5 Mg Tab, 5 MG PO ONCE for hypertension, #30 TAB Prov:Liseth Guy MD 12/30/17 Current Medications Medications (Trade) Dose Ordered Sig/[place] Route Start Time Stop Time Status Last Admin (NS Flush) 2 ml UNSCH PRN IV FLUSH 01/06/18 00:45 (NS Flush) 2 ml BID IV FLUSH 01/06/18 09:00 01/06/18 08:13 (Narcan Inj) 0.4 mg UNSCH PRN IV PUSH 01/06/18 00:45 (D50w (Vial) Inj) 50 ml UNSCH PRN IV PUSH 01/06/18 01:30 (Glucagon Inj) 1 mg UNSCH PRN OTHER 01/06/18 01:30 (NovoLOG SUPPLEMENTAL SCALE) 1 ACHS SLIDING SCALE SQ 01/06/18 08:00 (Norvasc) 5 mg DAILY PO 01/06/18 09:00 01/06/18 08:12 (Lipitor) 20 mg HS PO 01/06/18 21:00 (Duoneb Neb) 1 ampule Q6HR NEB NEB 01/06/18 04:00 01/06/18 08:13 (Duoneb Neb) 1 ampule Q2HR NEB PRN NEB 01/06/18 01:30 (Nitrostat Sl) 0.4 mg Q5M PRN SL 01/06/18 02:00 (Vasotec Inj) 1.25 mg Q6H PRN IV PUSH 01/06/18 02:00 Potassium Chloride 20 meq/ Sodium Chloride 1,010 ml @ 100 mls/hr Q0M IV 01/07/18 00:43 (Atarax) 50 mg Q6H PRN PO 01/06/18 10:30 UNV (Glucophage) 500 mg DAILY PO 01/06/18 10:30 UNV Family Psych History Patient has a sister who committed suicide Social History Patient was born and raised in [place], he has a [place] background, he lives with his here in [facility], 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 2) Family support, verbal communicate Physical Exam No tremors, no EPS, no withdrawal symptoms, no psychomotor agitation or retardation, no catatonic symptoms Vital Signs Vital Signs Date Time Temp Pulse Resp B/P (MAP) Pulse Ox O2 Delivery O2 Flow Rate FiO2 01/06/18 08:00 97.8 56 18 173/70 (104) 96 I/O 01/06/18 01/06/18 01/07/18 08:00 16:00 00:00 Intake Total 250 ml Balance 250 ml Lab Results Test 01/06/18 02:10 01/06/18 09:30 Blood Urea Nitrogen 9 MG/DL Creatinine 1.06 MG/DL Random Glucose 96 MG/DL Calcium Level 8.9 MG/DL Sodium Level 132 MEQ/L Potassium Level 3.2 MEQ/L Chloride Level 93 MEQ/L Carbon Dioxide Level 29.5 MEQ/L Anion Gap 10 MEQ/L Estimat Glomerular Filtration Rate 69 ML/MIN Troponin I LESS THAN 0.02 NG/ML Mental Status Examination Appearance: Appropriate Consciousness: Alert Orientation: x4 Motor Activity: Normal gait Speech: Unremarkable Language: Adequate Fund of Knowledge: Adequate Attention and Concentration: Adequate Memory: Unremarkable Mood: Sad Affect: Sad Thought Process & Associations: Intact Thought Content: Appropriate Hallucination Type: None Delusion Type: None Suicidal Ideation: Yes Suicidal Plan: No Suicidal Intention: No Homicidal Ideation: No Homicidal Plan: No Homicidal Intention: No Insight: Poor Judgment: Poor Assessment & Plan Problem List: (1) Major depressive disorder, recurrent ICD Codes: F33.9 - Major depressive disorder, recurrent, unspecified Assessment & Plan: Psychiatric evaluation today the patient presents objectively depressed, reporting suicidal ideation with a plan of overdosing. Patient reports that since he was discharged from psychiatry in January 01 he has been suffering increased symptomatology of depression and anxiety, depression consisting and hopelessness, helplessness, worthlessness, lack of motivation, lack of energy, difficulty sleeping at night, and persistent suicidal thoughts with a plan of overdosing. Patient will be admitted in psychiatry for stabilization and safety. Will add trazodone 50 mg at bedtime for depression and insomnia. Continue hydroxyzine 25 mg 3 times daily for anxiety. Brief supportive psychotherapy provided. Transfer patient to psychiatry once medically stable Assessment & Plan Estimated LOS: David Yu MD January 06, 2018 10:35
[2018-01-06 11:52] LABS: BICARBONATE 26.9 MEQ/L (21.0-32.0); CALCIUM 9.4 MG/DL (8.5-10.1); CREATININE 1.09 MG/DL (0.60-1.30)
[2018-01-06] MEDS ORDERED: MAGNESIUM OXIDE 400 MG TAB PO ONE (13:45)
--- NOTE | 2018-01-06 14:14 | EKG ---
Date Performed: 01/06/2018 Time Performed: 07:33:48 PTAGE: 67 years EKG: Sinus rhythm , POSSIBLE PACs BASELINE ARTEFACT ABNORMAL RHYTHM ECG PREVIOUS TRACING : 12/28/2017 17.49 Compared to previous tracing, baseline artefact is now pres ent. DOCTOR: Meet Suazo Interpretating Date/Time 01/06/2018 14:13:15
[2018-01-06] MEDS ORDERED: TRAZ50TA12 PO (16:09)
--- NOTE | 2018-01-06 16:11 | HHI.DCPOC ---
Discharge Care Plan Diagnosis: (1) Chest pain (2) Hypokalemia (3) Hyponatremia (4) Diabetes (5) Major depressive disorder, recurrent (6) Anxiety Goals to Promote Your Health * To prevent worsening of your condition and complications * To maintain your health at the optimal level Directions to Meet Your Goals Take your medications as prescribed Follow your dietary instruction Follow activity as directed Keep your appointments as scheduled Take your immunizations and boosters as scheduled If your symptoms worsen call your PCP, if no PCP go to Urgent Care Center or Emergency Room Smoking is Dangerous to Your Health. Avoid second hand smoke Call the 24-hour hour crisis hotline for domestic abuse at Laurie Bauman January 06, 2018 16:11
--- NOTE | 2018-01-06 16:32 | EKG ---
Date Performed: 01/06/2018 Time Performed: 15:52:30 PTAGE: 67 years EKG: Sinus rhythm NORMAL ECG PREVIOUS TRACING : 01/06/2018 07.33 Compared to previous tracing, baseline artefact has resolve d. DOCTOR: Meet Suazo Interpretating Date/Time 01/06/2018 16:32:05
[2018-01-06] MEDS ORDERED: ACETAMINOPHEN 325 MG TAB PO PRN (17:45)
[2018-01-06] MEDS ORDERED: ATORVASTATIN 20 MG TAB PO SCH (21:00)
[2018-01-06] MEDS ORDERED: traZODone HCL 50 MG TAB PO SCH (21:00)
[2018-01-07] MEDS ORDERED: NS + KCL 20 MEQ INJ 1,000 ML IV SCH (00:43)
== END 2018-01-06 21:05 ==
LOC: NEDDLT 23:15 → NEPGCP 23:25
PROVIDERS: ADMIT Internal Medicine; ATTEND Internal Medicine
DX: R07.89 Other chest pain (principal); E87.6 Hypokalemia; E87.1 Hypo-osmolality and hyponatremia; E11.9 Type 2 diabetes mellitus without complications; J44.9 Chronic obstructive pulmonary disease, unspecified; F41.9 Anxiety disorder, unspecified; F33.9 Major depressive disorder, recurrent, unspecified; R06.02 Shortness of breath; R45.851 Suicidal ideations; I10 Essential (primary) hypertension
CPT/HCPCS: 80048; 80307; 82948; 83735; 84443; 84484; 85025; 93005; 94640; 94664; 96360; 96361; 96374; 96375; 96376; 99285; G0378; J1200; J1630; J1815; J2060; J7030; 80053

== ENCOUNTER 2018-01-06 20:50 | Inpatient (IN) | payer OTHER, MEDICARE ==
[~2018-01-06] VITALS: Ht 175.3 cm; Wt 97.5 kg
[~2018-01-06 20:50] MED LIST changes: +TRAZ50TA12 PO
[2018-01-06 20:55] VITALS: BP 159/69; PULSE 72; RESP 16; TEMP 98.1; O2SAT 95
[2018-01-06] MEDS ORDERED: MAGNESIUM HYDROXIDE SUSP 30 ML CUP PO PRN (21:45)
[2018-01-07] MEDS ORDERED: LORazepam 2 MG TAB PO ONE (01:30)
[2018-01-07 05:55] VITALS: BP 153/79; PULSE 76; RESP 18; TEMP 97.9; O2SAT 95
[2018-01-07] MEDS: ALUMINUM/MAGNESIUM/SIMETH 30 ML CUP PO PRN (08:52)
[2018-01-07] MEDS ORDERED: DEXTROSE 50% IN WATER 50 ML VIAL(D50) IV PUSH PRN (10:00)
[2018-01-07] MEDS ORDERED: GLUCAGON 1 MG/ML VIAL OTHER PRN (10:00)
[2018-01-07] MEDS ORDERED: amLODIPine BESYLATE 5 MG TAB PO ONE (10:00)
[2018-01-07] MEDS ORDERED: RESP: ALBUTEROL 2.5 MG/IPRATROPIUM 0.5 MG NEB (PRN) NEB (10:15)
--- NOTE | 2018-01-07 11:04 | PD.CONS ---
HPI Service [facility] Hospitalists Consult Requested By Psychiatry service Reason for Consult Assist in medical management Primary Care Physician Unknown Diagnoses: History of Present Illness This is a 67yo male with a PMHX significant for HTN, DM, COPD, anxiety and depression who was admitted to [place] on 01/06/18 under [place] Act with hyponatremia with sodium of 124, chest pain, shortness of breath and suicidal ideation. Patient ruled out for ACS. His sodium improved with intravenous fluids. Patient was seen by psychiatry and accepted for inpatient admission. Hospitalist services have been consulted to assist with ongoing medical management. Patient is seen and examined. He complains of right sided gripping chest pain that he relates to increased anxiety. He is asking when can he have his anxiety medications. He denies any associated diaphoresis, palpitations, N/V or shortness of breath. Review of Systems Except as stated in HPI: all other systems reviewed are Neg Past Family Social History Allergies: Coded Allergies: haloperidol (Verified Allergy, Severe, ITCHING & CHEST PAIN, 01/05/18) Past Medical History Hypertension Diabetes COPD Anxiety Depression Past Surgical History Patient denies any previous surgical history Reported Medications Trazodone (Trazodone HCl) 50 Mg Tab 50 Mg PO HS Hydroxyzine HCl 50 Mg Tab 50 Mg PO Q6H PRN Norvasc (Amlodipine Besylate) 5 Mg Tab 5 Mg PO DAILY Atorvastatin (Atorvastatin Calcium) 20 Mg Tab 20 Mg PO HS Metformin (Metformin HCl) 500 Mg Tab 500 Mg PO DAILY With a meal Active Ordered Medications Current Medications Medications (Trade) Dose Ordered Sig/[place] Route Start Time Stop Time Status Last Admin (Tylenol) 650 mg Q4H PRN PO 01/06/18 21:45 (Milk Of Magnesia Liq) 30 ml DAILY PRN PO 01/06/18 21:45 (Mag-Al Plus Susp Liq) 30 ml Q6H PRN PO 01/06/18 21:45 01/07/18 08:52 (Norvasc) 5 mg DAILY PO 01/08/18 09:00 (D50w (Vial) Inj) 50 ml UNSCH PRN IV PUSH 01/07/18 10:00 (Glucagon Inj) 1 mg UNSCH PRN OTHER 01/07/18 10:00 (NovoLOG SUPPLEMENTAL SCALE) 1 ACHS SLIDING SCALE SQ 01/07/18 12:00 (Duoneb Neb) 1 ampule Q2HR NEB PRN NEB 01/07/18 10:15 (Atarax) 50 mg Q6H PRN PO 01/07/18 10:45 UNV Family History Reviewed with patient who denies any significant family medical history Social History Patient has a hx of previous tobacco use but quit smoking 10yrs ago. He denies any alcohol use or illicit drug use. Patient is and lives with his . Both his sister and mother have committed suicide. Physical Exam Vital Signs Vital Signs Date Time Temp Pulse Resp B/P (MAP) Pulse Ox O2 Delivery O2 Flow Rate FiO2 01/07/18 05:55 97.9 76 18 153/79 (103) 95 01/06/18 20:55 98.1 72 16 159/69 (99) 95 Physical Exam GENERAL: This is a well-nourished, well-developed pleasant male patient , in no apparent distress. Awake and alert. Appears somewhat anxious. SKIN: Warm and dry. No rashes, ecchymoses or lesions. HEAD: Atraumatic. Normocephalic. No temporal or scalp tenderness. EYES: Pupils equal round and reactive. Extraocular motions intact. No scleral icterus. No injection or drainage. ENT: Nose without bleeding or purulent drainage. Throat without erythema, tonsillar hypertrophy or exudate. Uvula midline. Airway patent. MMM. NECK: Trachea midline. No lymphadenopathy. Supple, nontender, no meningeal signs. CARDIOVASCULAR: Regular rate and rhythm without murmurs, gallops, or rubs. RESPIRATORY: Nonlabored. Clear to auscultation. Breath sounds equal bilaterally. No wheezes, rales, or rhonchi. GASTROINTESTINAL: Abdomen soft, non-tender, nondistended. No hepato-splenomegaly , or palpable masses. No guarding. MUSCULOSKELETAL: Extremities without clubbing, cyanosis, or edema. No joint tenderness, effusion, or edema noted. No calf tenderness. NEUROLOGICAL: Awake and alert. Cranial nerves II through XII grossly intact. Motor and sensory grossly within normal limits. No focal neurologic findings appreciated. Normal speech. Assessment and Plan Assessment and Plan 67-year-old male with a history of hypertension, COPD ,diabetes, anxiety and depression presented to the ED with suicidal ideations, chest pain and shortness of breath. Suicidal ideations patient with a history of anxiety and depression -management per psychiatry -will resume Atarax 50mg TID prn anxiety as recommended by Dr. Wells during admission at the main. Discussed with nursing staff. Chest pain, atypical, likely due to anxiety Patient ruled out ACS previous to inpt psych admission -will obtain troponin level and EKG for further evaluation -Nitro prn Hypertension, chronic -will resume on Norvasc 5mg daily -Clonidine prn with parameters -will continue to monitor BP and adjust treatment accordingly Hyponatremia, improved -will repeat lab to monitor sodium level -encourage po fluid intake COPD, chronic, not in acute exacerbation -DuoNebs as needed -continue to monitor respiratory status Diabetes, chronic -Accu-Cheks with sliding scale insulin -Hold metformin while in hospital or until patient is eating well DVT prophylaxis: Patient is ambulatory Thank you very kindly for this consultation and will continue to follow along with you. Laurie Bauman January 07, 2018 11:04
[2018-01-07] MEDS: INSULIN ASPART SUPPLEMENTAL SCALE SQ SCH ×3 (11:13→21:00)
[2018-01-07] MEDS ORDERED: NITROGLYCERIN 0.4 MG SL 25 TABS/BTL SL PRN (11:15)
[2018-01-07] MEDS ORDERED: cloNIDine HCL 0.1 MG TAB PO PRN (11:15)
[2018-01-07] MEDS: hydrOXYzine HCL 50 MG TAB PO PRN (11:20)
[2018-01-07 15:23] LABS: AUTOMATED NEUTROPHIL # 5.8 TH/MM3 (1.8-7.7); BASOPHIL # 0.1 TH/MM3 (0-0.2); BASOPHIL % 0.8 % (0.0-2.0); EOSINOPHIL # 0.1 TH/MM3 (0-0.4); EOSINOPHIL % 1.4 % (0.0-4.0); HEMATOCRIT 36.4 % (39.0-51.0); HEMOGLOBIN 12.1 GM/DL (13.0-17.0); LYMPH % 10.5 % (9.0-44.0); LYMPHOCYTE # 0.8 TH/MM3 (1.0-4.8); MEAN CELL VOLUME 84.4 FL (80.0-100.0); MEAN CORPUSCULAR HEMOGLOBIN 28.1 PG (27.0-34.0); MEAN CORPUSCULAR HGB CONC 33.3 % (32.0-36.0); MEAN PLATELET VOLUME 9.6 FL (7.0-11.0); MONO % 7.2 % (0.0-8.0); MONOCYTE # 0.5 TH/MM3 (0-0.9); NEUT % 80.1 % (16.0-70.0); PLATELET COUNT 258 TH/MM3 (150-450); RED BLOOD COUNT 4.31 MIL/MM3 (4.50-5.90); RED CELL DISTRIBUTION WIDTH 14.4 % (11.6-17.2); WHITE BLOOD COUNT 7.2 TH/MM3 (4.0-11.0)
[2018-01-07 15:28] LABS: ALBUMIN 3.4 GM/DL (3.4-5.0); ALT (GPT) 25 U/L (12-78); AST (GOT) 18 U/L (15-37); BLOOD UREA NITROGEN 13 MG/DL (7-18); CALCIUM 8.9 MG/DL (8.5-10.1); CHLORIDE 95 MEQ/L (98-107); CREATININE 1.29 MG/DL (0.60-1.30); GLOMERULAR FILTRATION RATE 55 ML/MIN (>89); GLUCOSE,RANDOM 205 MG/DL (74-106); SODIUM (NA) 134 MEQ/L (136-145)
[2018-01-07 15:32] LABS: ALKALINE PHOSPHATASE 64 U/L (45-117); TOTAL BILIRUBIN ADULT 0.4 MG/DL (0.2-1.0); TOTAL PROTEIN 7.3 GM/DL (6.4-8.2); TROPONIN I LESS THAN 0.02 NG/ML (0.02-0.05)
[2018-01-07] MEDS ORDERED: hydrOXYzine HCL 50 MG TAB PO PRN ×2 (16:45)
[2018-01-07] MEDS ORDERED: ALUMINUM/MAGNESIUM/SIMETH 30 ML CUP PO PRN (16:45)
[2018-01-07] MEDS ORDERED: diphenhydrAMINE HCL 50 MG CAP PO PRN (16:45)
--- NOTE | 2018-01-07 16:51 | HHI.HP ---
Provisional Diagnosis Admission Date January 06, 2018 at 21:08 [place]. Adjustment disorder with mixed disturbances of emotion and conduct Certification of Person's Competence To Provide Express and Informed Consent I have personally examined Cameron Lane , a person being served at [facility] on, January 07, 2018 16:42. Express and informed consent means consent voluntarily given in writing, by a competent person, after sufficient explanation and disclosure of the subject matter involved to enable the person to make a knowing and willful decision without any element of force, fraud, deceit, duress, or other form of constraint or coercion. This person is 18 years of age or older, is not now known to be incompetent to consent to treatment with a guardian advocate, and does not have a health care surrogate or proxy currently making medical treatment decisions. I have found this person to be one of the following: [xxx] Competent to provide express and informed consent, as defined above, for voluntary admission to this facility and is competent to provide express and informed consent for treatment. He/she has the consistent capacity to make well reasoned, willful, and knowing decisions concerning his or her medical or mental health treatment. The person fully and consistently understands the purpose of the admission for examination/placement and is fully capable of personally exercising all rights assured [place] Incompetent to provide express and informed consent to voluntary admission, and this is incompetent to provide express and informed consent to treatment. The person must be transferred to involuntary status and a petition for a guardian advocate filed with the Circuit Court. [] Refusing to provide express and informed consent to voluntary admission but is competent to provide express and informed consent for treatment. The person must be discharged or transferred to involuntary status. Form shall be completed within 24 hours of a person's arrival at the receiving facility and filed in the clinical record of each person: 1. Admitted on a voluntary basis 2. Permitted to provide express and informed consent to his/her own treatment 3. Allowed to transfer from involuntary to voluntary status 4. Prior to permitting a person to consent to his or her own treatment after having been previously found incompetent to consent to treatment. History of Present Illness Capacity: Has Capacity HPI Patient is a 57-year-old male who comes here voluntarily initially being admitted to the medical service on 01/04 through 01/06 with after being brought to the hospital without fight with his him becoming more depressed medically unstable noncompliant medications patient was seen in consultation by Dr. Mckeon recommended transfer to the psychiatric unit when medically cleared. Patient was medically cleared. At the present time patient sitting quietly in the day room nurse jorge luis present throughout session. Patient alert oriented male with lim hair and lim robles did recognize me from her prior contact the prior hospitalization a few weeks ago. He states he was home with his and adult daughter became somewhat irritated or challenging to them related to his medications leading to the argument of this hospitalization. He denies suicidality homicidality voice or visions. He states sometimes he does not know why he gets so angry with his . However at this time he is concerned about his behavior and remains depressed over this. At this time he does meet criteria for further psychiatric assessment on a voluntary basis Review of Systems Except as stated in HPI: all other systems reviewed are Neg Past Psych History Psychological trauma history Patient denies Violence risk - others (6 mos) Patient became somewhat angry towards Violence risk - self (6 mos) Patient became somewhat angry towards himself Substance Abuse History Drugs/Alcohol past 12 months Denies Past Family Social History Coded Allergies: haloperidol (Verified Allergy, Severe, ITCHING & CHEST PAIN, 01/05/18) Active Scripts Trazodone (Trazodone) 50 Mg Tab, 50 MG PO HS for Depression, #30 TAB Prov:Laurie Bauman 01/06/18 Hydroxyzine HCl (Hydroxyzine HCl) 50 Mg Tab, 50 MG PO Q6H Y for ANXIETY, #15 TAB 0 Refills Prov:Addy Velarde MD 01/01/18 Amlodipine (Norvasc) 5 Mg Tab, 5 MG PO DAILY for health, #30 TAB 0 Refills Prov:Addy Velarde MD 01/01/18 Reported Medications Atorvastatin (Atorvastatin) 20 Mg Tab, 20 MG PO HS for Cholesterol Management, # 30 TAB 0 Refills 01/05/18 Metformin (Metformin) 500 Mg Tab, 500 MG PO DAILY for Blood Sugar Management, # 30 TAB 0 Refills With a meal 01/05/18 Current Medications Medications (Trade) Dose Ordered Sig/[place] Route Start Time Stop Time Status Last Admin (Tylenol) 650 mg Q4H PRN PO 01/06/18 21:45 (Milk Of Magnesia Liq) 30 ml DAILY PRN PO 01/06/18 21:45 (Mag-Al Plus Susp Liq) 30 ml Q6H PRN PO 01/06/18 21:45 01/07/18 08:52 (Norvasc) 5 mg DAILY PO 01/08/18 09:00 (D50w (Vial) Inj) 50 ml UNSCH PRN IV PUSH 01/07/18 10:00 (Glucagon Inj) 1 mg UNSCH PRN OTHER 01/07/18 10:00 (NovoLOG SUPPLEMENTAL SCALE) 1 ACHS SLIDING SCALE SQ 01/07/18 12:00 01/07/18 16:34 (Duoneb Neb) 1 ampule Q2HR NEB PRN NEB 01/07/18 10:15 (Atarax) 50 mg Q6H PRN PO 01/07/18 10:45 01/07/18 11:20 (Nitrostat Sl) 0.4 mg Q5M PRN SL 01/07/18 11:15 (Catapres) 0.1 mg Q6H PRN PO 01/07/18 11:15 (Benadryl) 50 mg HS PRN PO 01/07/18 16:45 UNV (Mag-Al Plus Susp Liq) 30 ml Q6H PRN PO 01/07/18 16:45 UNV (Atarax) 50 mg Q6H PRN PO 01/07/18 16:45 UNV (Norvasc) 5 mg DAILY PO 01/08/18 09:00 UNV (Lipitor) 20 mg HS PO 01/07/18 21:00 UNV (Atarax) 50 mg Q6H PRN PO 01/07/18 16:45 UNV (Glucophage) 500 mg DAILY PO 01/08/18 09:00 UNV (Desyrel) 50 mg HS PO 01/07/18 21:00 UNV Family Psych History Denies Social History Patient lives with his and adult daughter Patient's Strengths (min. 2) Patient verbal able access healthcare Physical Exam Patient medically cleared with that prior hospitalization patient sitting in [place] chair in no acute distress, is in no respiratory distress, no complaints of chest pain, no abdominal pain, patient moving all 4 extremities without difficulty Vital Signs Vital Signs Date Time Temp Pulse Resp B/P (MAP) Pulse Ox O2 Delivery O2 Flow Rate FiO2 01/07/18 05:55 97.9 76 18 153/79 (103) 95 Lab Results Test 01/07/18 13:40 White Blood Count 7.2 TH/MM3 Red Blood Count 4.31 MIL/MM3 Hemoglobin 12.1 GM/DL Hematocrit 36.4 % Mean Corpuscular Volume 84.4 FL Mean Corpuscular Hemoglobin 28.1 PG Mean Corpuscular Hemoglobin Concent 33.3 % Red Cell Distribution Width 14.4 % Platelet Count 258 TH/MM3 Mean Platelet Volume 9.6 FL Neutrophils (%) (Auto) 80.1 % Lymphocytes (%) (Auto) 10.5 % Monocytes (%) (Auto) 7.2 % Eosinophils (%) (Auto) 1.4 % Basophils (%) (Auto) 0.8 % Neutrophils # (Auto) 5.8 TH/MM3 Lymphocytes # (Auto) 0.8 TH/MM3 Monocytes # (Auto) 0.5 TH/MM3 Eosinophils # (Auto) 0.1 TH/MM3 Basophils # (Auto) 0.1 TH/MM3 CBC Comment DIFF FINAL Differential Comment Blood Urea Nitrogen 13 MG/DL Creatinine 1.29 MG/DL Random Glucose 205 MG/DL Total Protein 7.3 GM/DL Albumin 3.4 GM/DL Calcium Level 8.9 MG/DL Alkaline Phosphatase 64 U/L Aspartate Amino Transf (AST/SGOT) 18 U/L Alanine Aminotransferase (ALT/SGPT) 25 U/L Total Bilirubin 0.4 MG/DL Sodium Level 134 MEQ/L Potassium Level 3.8 MEQ/L Chloride Level 95 MEQ/L Carbon Dioxide Level 29.0 MEQ/L Anion Gap 10 MEQ/L Estimat Glomerular Filtration Rate 55 ML/MIN Troponin I LESS THAN 0.02 NG/ML Mental Status Examination Appearance: Appropriate Consciousness: Alert Orientation: x4 Motor Activity: Normal gait Speech: Unremarkable Language: Adequate Fund of Knowledge: Adequate Attention and Concentration: Other (Fair) Memory: Unremarkable (Fair) Mood: Other (Euthymic to mildly dysphoric) Affect: Other (Slight decreased range and intensity) Thought Process & Associations: Intact Thought Content: Appropriate Hallucination Type: None Delusion Type: Other (Mildly vigilant) Suicidal Ideation: No Suicidal Plan: No (Denies) Suicidal Intention: No Homicidal Ideation: No Homicidal Intention: No Insight: Fair Judgment: Impulsive Assessment & Plan Problem List: (1) Adjustment disorder with mixed disturbance of emotions and conduct ICD Codes: F43.25 - Adjustment disorder with mixed disturbance of emotions and conduct Assessment & Plan Estimated LOS: 5-7 days patient meets criteria for further inpatient voluntary assessment. We will start him on antidepressant, continues Vistaril could not continue his cardiac medications. We will have a hospitalist also consult will S. We will attempt to arrange a meeting with patient's to further discuss the situation Discharge Planning Probable return to the family home Request HC Surrog/Guard Advoc?: No Addy Velarde MD January 07, 2018 16:50
[2018-01-07] MEDS: ACETAMINOPHEN 325 MG TAB PO PRN (17:10)
[2018-01-07 18:00] VITALS: BP 141/71; PULSE 61; RESP 19; TEMP 98.4; O2SAT 98
[2018-01-07] MEDS: traZODone HCL 50 MG TAB PO SCH (21:00)
[2018-01-07] MEDS: ATORVASTATIN 20 MG TAB PO SCH (21:00)
[2018-01-08 06:03] VITALS: BP 156/92; PULSE 75; RESP 18; TEMP 97.6; O2SAT 96
[2018-01-08] MEDS: INSULIN ASPART SUPPLEMENTAL SCALE SQ SCH ×4 (07:37→21:57)
[2018-01-08] MEDS: ACETAMINOPHEN 325 MG TAB PO PRN ×2 (07:49→12:10)
[2018-01-08] MEDS: metFORMIN HCL 500 MG TAB PO SCH (07:49)
[2018-01-08] MEDS ORDERED: amLODIPine BESYLATE 5 MG TAB PO SCH ×2 (09:00)
[2018-01-08] MEDS: ALUMINUM/MAGNESIUM/SIMETH 30 ML CUP PO PRN (10:08)
--- NOTE | 2018-01-08 13:06 | HHI.PR ---
Subjective Remarks Follow up for chest pain, anxiety, HTN, hyponatremia, COPD, DM. The patient is seen ambulating his room, accompanied by RN. The patient reports still feeling very anxious and shaky. He also reports occasional nonproductive cough. RN reporting wheezing on exam, worse at the right base. The patient states he has a nebulizer at home but only needs to use it maybe once a month. Denies ever requiring oxygen. Denies any chest pain or shortness of breath. Denies fevers/ chills. He has no other medical complaints at this time. Objective Vitals Vital Signs Date Time Temp Pulse Resp B/P (MAP) Pulse Ox O2 Delivery O2 Flow Rate FiO2 01/08/18 06:03 97.6 75 18 156/92 (113) 96 01/07/18 18:00 98.4 61 19 141/71 (94) 98 I/O 01/07/18 01/07/18 01/07/18 01/08/18 01/08/18 01/08/18 07:00 15:00 23:00 07:00 15:00 23:00 Intake Total 720 ml 240 ml Balance 720 ml 240 ml Intake Oral 720 ml 240 ml # Voids 3 Result Diagram: 01/07/18 1340 01/07/18 1340 Objective Remarks GENERAL: Well-nourished, well-developed pleasant male patient in [facility]. SKIN: Warm and dry. No rash. HEENT: Normocephalic. Atraumatic. Pupils equal and round. Mucous membranes pink and moist. NECK: Supple. Trachea midline. CARDIOVASCULAR: Regular rate and rhythm. No murmur appreciated. RESPIRATORY: No accessory muscle use. Mild expiratory wheezing throughout right lung, worse at right base. Breath sounds equal bilaterally. GASTROINTESTINAL: Abdomen soft, non-tender, nondistended. Normoactive bowel sounds x4. MUSCULOSKELETAL: No obvious deformities. Extremities without clubbing, cyanosis , or edema. NEUROLOGICAL: Awake and alert. No obvious cranial nerve deficits. Motor grossly within normal limits. Moving all extremities spontaneously. Normal speech. Medications and IVs Current Medications Medications (Trade) Dose Ordered Sig/[place] Route Start Time Stop Time Status Last Admin (Tylenol) 650 mg Q4H PRN PO 01/06/18 21:45 01/08/18 12:10 (Milk Of Magnesia Liq) 30 ml DAILY PRN PO 01/06/18 21:45 (Mag-Al Plus Susp Liq) 30 ml Q6H PRN PO 01/06/18 21:45 01/08/18 10:08 (Norvasc) 5 mg DAILY PO 01/08/18 09:00 01/08/18 07:49 (D50w (Vial) Inj) 50 ml UNSCH PRN IV PUSH 01/07/18 10:00 (Glucagon Inj) 1 mg UNSCH PRN OTHER 01/07/18 10:00 (NovoLOG SUPPLEMENTAL SCALE) 1 ACHS SLIDING SCALE SQ 01/07/18 12:00 01/07/18 16:34 (Duoneb Neb) 1 ampule Q2HR NEB PRN NEB 01/07/18 10:15 (Atarax) 50 mg Q6H PRN PO 01/07/18 10:45 01/07/18 11:20 (Nitrostat Sl) 0.4 mg Q5M PRN SL 01/07/18 11:15 (Catapres) 0.1 mg Q6H PRN PO 01/07/18 11:15 (Benadryl) 50 mg HS PRN PO 01/07/18 16:45 (Lipitor) 20 mg HS PO 01/07/18 21:00 01/07/18 21:00 (Glucophage) 500 mg DAILY PO 01/08/18 09:00 01/08/18 07:49 (Desyrel) 50 mg HS PO 01/07/18 21:00 01/07/18 21:00 A/P Assessment and Plan 67-year-old male with a history of HTN, COPD, DM, anxiety and depression presented to the ED with suicidal ideations, chest pain and shortness of breath. Suicidal ideations patient with a history of anxiety and depression -continue management per psychiatry -resumed Atarax 50mg q6h prn anxiety, recommended by Dr. Wells during admission at the [facility]. Chest pain, atypical: suspect secondary to anxiety -Patient ruled out ACS previous to inpt psych admission -repeat troponin wnl and EKG with no acute ischemic changes -Nitro prn -chest pain resolved Hypertension: chronic -resumed Norvasc 5mg daily, BP still not well controlled, will increase Norvasc to 10mg daily -Clonidine prn with parameters -continue to monitor BP and adjust antihypertensives as needed Hyponatremia: Na 124 on 01/05, now improved to 134 -encourage po fluid intake -monitor BMP COPD: with mild exacerbation, +wheezing on exam with nonproductive cough. -Give Duoneb x1now and Continue DuoNebs q2h prn -check CXR -O2 sat stable on room air Diabetes: chronic -Continue patient's metformin -Monitor Accu-Cheks and cover with sliding scale insulin Acute Renal Insufficiency: Cr 1.29, previously 1.0 on 01/05/18. Suspect mild dehydration -encourage po fluid intake -repeat BMP in am DVT prophylaxis: ambulation Discharge Planning 01/08 - will continue to follow, adjusted Norvasc dosing today for better BP control. Repeat labs in am. Sisi Feliciano PA-C January 08, 2018 1:06 pm
[2018-01-08] MEDS ORDERED: RESP: ALBUTEROL 2.5 MG/IPRATROPIUM 0.5 MG NEB (SCH) NEB ONE (13:15)
[2018-01-08] MEDS: hydrOXYzine HCL 50 MG TAB PO PRN ×2 (14:00→21:21)
--- NOTE | 2018-01-08 14:11 | EKG ---
Date Performed: 01/07/2018 Time Performed: 13:18:15 PTAGE: 67 years EKG: Sinus rhythm NORMAL ECG PREVIOUS TRACING : 01/06/2018 15.52 Since the previous tracing, no significant change noted DOCTOR: Joby Lemus Interpretating Date/Time 01/08/2018 14:05:01
--- NOTE | 2018-01-08 14:15 | HHI.PYPN ---
Subjective Remarks Patient seen in his room with nurse House, chart reviewed, patient compliant medications. Patient calm pleasant with me asks when he can go home. Minimizes any conflict confusion discrepancy aggressiveness with his and/ or daughter. We need to get further information from them. He is otherwise compliant with his medication, denies voices denies suicidality Review of Systems Except as stated in HPI: all other systems reviewed are Neg Mental Status Examination Appearance: Appropriate Consciousness: Alert Orientation: x4 Motor Activity: Normal gait Speech: Unremarkable Language: Adequate Fund of Knowledge: Adequate Attention and Concentration: Other Memory: Unremarkable Mood: Other Affect: Other Thought Process & Associations: Intact Thought Content: Appropriate Hallucination Type: None Delusion Type: Other Suicidal Ideation: No Suicidal Plan: No Suicidal Intention: No Homicidal Ideation: No Homicidal Intention: No Insight: Fair Judgment: Impulsive Results Vitals/IOs Vital Signs Date Time Temp Pulse Resp B/P (MAP) Pulse Ox O2 Delivery O2 Flow Rate FiO2 01/08/18 06:03 97.6 75 18 156/92 (113) 96 Intake and Output 01/08/18 01/08/18 01/09/18 08:00 16:00 00:00 Intake Total 240 ml Balance 240 ml Assessment & Plan Problem List: (1) Adjustment disorder with mixed disturbance of emotions and conduct ICD Codes: F43.25 - Adjustment disorder with mixed disturbance of emotions and conduct Assessment & Plan Estimated LOS: days patient shows no insight appropriate processing of behaviors that led to this hospitalization. Need to get further information from patient's family about the circumstances. He is otherwise compliant medication no behavior problems here Justification for Cont. Inpt. At this time patient would decompensate a place to the lower level of care Discharge Planning Hope to return home with family Request HC Surrog/Guard Advoc?: No Addy Velarde MD January 08, 2018 14:15
--- NOTE | 2018-01-08 15:05 | RADRPT ---
EXAM DATE: 01/08/2018 2:32 PM EDT AGE/SEX: 67 years / Male INDICATIONS: Cough, wheezing, worse at right base. CLINICAL DATA: This is the patient's initial encounter. Patient reports that signs and symptoms have been present for 1 day and indicates a pain score of 0/10. MEDICAL/SURGICAL HISTORY: Hypertension. Diabetes. CVA. None. COMPARISON: No prior Stem exams available for comparison. FINDINGS: Mild diffuse interstitial prominence. No significant focal pleural or parenchymal opacities. Cardiac and mediastinal contours are within normal limits. Bony thorax is intact. CONCLUSION: 1. Mild diffuse interstitial prominence of unknown chronicity given lack of prior exams. If acute, d ifferential considerations include interstitial pneumonia. Electronically signed by: Rakesh Elizabeth MD 01/08/2018 3:04 PM EDT
[2018-01-08 17:26] VITALS: BP 113/63; PULSE 64; RESP 16; TEMP 98.3; O2SAT 95
[2018-01-08] MEDS: ATORVASTATIN 20 MG TAB PO SCH (21:21)
[2018-01-08] MEDS: traZODone HCL 50 MG TAB PO SCH (21:21)
[2018-01-09] MEDS: INSULIN ASPART SUPPLEMENTAL SCALE SQ SCH ×3 (06:05→16:30)
[2018-01-09 06:09] VITALS: BP 141/63; PULSE 85; RESP 18; TEMP 98.4; O2SAT 97
[2018-01-09] MEDS: metFORMIN HCL 500 MG TAB PO SCH (08:50)
[2018-01-09 09:02] LABS: BICARBONATE 29.9 MEQ/L (21.0-32.0); CREATININE 1.08 MG/DL (0.60-1.30)
[2018-01-09] MEDS ORDERED: HYDR50TA94 PO (13:23)
--- NOTE | 2018-01-09 13:27 | HHI.DS ---
Psychiatry Discharge Summary Inpatient Psychiatric care?: Yes Advance Directive: No Reason Not Provided: unavailable Mental Health AdvanceDirective: No Health Care Proxy: No Admission Admission Date January 06, 2018 at 21:08 Admission Diagnosis: (1) Adjustment disorder with mixed disturbance of emotions and conduct ICD Code: F43.25 - Adjustment disorder with mixed disturbance of emotions and conduct Brief History Patient is a 57-year-old male who comes here voluntarily initially being admitted to the medical service on 01/04 through 01/06 with after being brought to the hospital without fight with his him becoming more depressed medically unstable noncompliant medications patient was seen in consultation by Dr. Mckeon recommended transfer to the psychiatric unit when medically cleared. Patient was medically cleared. At the present time patient sitting quietly in the day room nurse jorge luis present throughout session. Patient alert oriented male with lim hair and lim robles did recognize me from her prior contact the prior hospitalization a few weeks ago. He states he was home with his and adult daughter became somewhat irritated or challenging to them related to his medications leading to the argument of this hospitalization. He denies suicidality homicidality voice or visions. He states sometimes he does not know why he gets so angry with his . However at this time he is concerned about his behavior and remains depressed over this. At this time he does meet criteria for further psychiatric assessment on a voluntary basis Tobacco Use In Past 30 Days: No Tobacco Past 30 Days Alcohol Use: Never Hospital Course Patient's hospital course was uneventful, he showed no behavior problems while on the unit. It appears there is some I am going relationship issues with his related to the dosaging of the Atarax. I emphasized with the patient again today that is only following my instructions. That he needs to be cooperative with this. He acknowledges then says he will try better. Otherwise today he denies suicidality homicidality voice or visions. He does want to go home to his . He is scheduled next week for follow-up private psychiatrist and counselor appointments Results Blood Pressure 141 / 63 Vital Signs Date Time Temp Pulse Resp B/P (MAP) Pulse Ox O2 Delivery O2 Flow Rate FiO2 01/09/18 06:09 98.4 85 18 141/63 (89) 97 Laboratory Tests Test 01/07/18 13:40 01/09/18 07:33 Red Blood Count 4.31 MIL/MM3 (4.50-5.90) Hemoglobin 12.1 GM/DL (13.0-17.0) Hematocrit 36.4 % (39.0-51.0) Neutrophils (%) (Auto) 80.1 % (16.0-70.0) Lymphocytes # (Auto) 0.8 TH/MM3 (1.0-4.8) Random Glucose 205 MG/DL (74-106) 108 MG/DL (74-106) Sodium Level 134 MEQ/L (136-145) Chloride Level 95 MEQ/L (98-107) Estimat Glomerular Filtration Rate 55 ML/MIN (>89) 68 ML/MIN (>89) Troponin I LESS THAN 0.02 NG/ML Summary of Procedures None done Imaging Last Impressions Chest X-Ray 01/08/18 0000 Signed Impressions: CONCLUSION: 1. Mild diffuse interstitial prominence of unknown chronicity given lack of pr ior exams. If acute, differential considerations include interstitial pneumonia . Pending results at discharge: No Medications # of Antipsychotic meds at D/C: 0 Approp Antipsych med options 1 - Minimum of three failed multiple trials of monotherapy. 2 - Documented plan to taper to monotherapy due to previous use of multiple meds OR cross-taper in progress at D/C. 3 - Documentation of augmentation of Clozapine. 4 - Justification other than those listed in allowable values 1-3, document here : Discharge Discharge Date: January 09, 2018 Discharge Diagnosis: (1) Adjustment disorder with mixed disturbance of emotions and conduct ICD Code: F43.25 - Adjustment disorder with mixed disturbance of emotions and conduct Pt Condition on Discharge: Stable Discharge Disposition: Discharge Home Discharge Instructions Diet Instructions: As Tolerated, No Restrictions Activities you can perform: Regular-No Restrictions Scheduled Appointment: Private Psychiatrist Discharge Time > 30 minutes Mental Status Examination Appearance: Appropriate Consciousness: Alert Orientation: x4 Motor Activity: Normal gait Speech: Unremarkable Language: Adequate Fund of Knowledge: Adequate Attention and Concentration: Other Memory: Unremarkable Mood: Other Affect: Other Thought Process & Associations: Intact Thought Content: Appropriate Hallucination Type: None Delusion Type: Other Suicidal Ideation: No Suicidal Plan: No Suicidal Intention: No Homicidal Ideation: No Homicidal Intention: No Insight: Fair Judgment: Impulsive Discharge/Advance Care Plan Health Problems: (1) Adjustment disorder with mixed disturbance of emotions and conduct Goals to promote your health * To prevent worsening of your condition and complications * To maintain your health at the optimal level Directions to meet your goals Take your medications as prescribed Follow your dietary instruction Follow activity as directed Keep your appointments as scheduled Take your immunizations and boosters as scheduled If your symptoms worsen call your PCP, if no PCP go to Urgent Care Center or Emergency Room For 05/03 questions related to your inpatient stay or results of tests pending at discharge, please contact Dr. Addy Velarde at Smoking is Dangerous to Your Health. Avoid second hand smoking Addy Velarde MD January 09, 2018 13:27
[2018-01-09] MEDS ORDERED: AMLO10 PO (14:44)
[2018-01-09] MEDS: hydrOXYzine HCL 50 MG TAB PO PRN (14:46)
--- NOTE | 2018-01-09 14:51 | HHI.PR ---
Subjective Remarks Follow up for COPD, HTN. The patient is seen ambulating the hallway. He states his wheezing has improved after he received breathing treatment. Denies any chest pain or shortness of breath. Denies any fevers/chills. No other medical complaints reported at this time. Objective Vitals Vital Signs Date Time Temp Pulse Resp B/P (MAP) Pulse Ox O2 Delivery O2 Flow Rate FiO2 01/09/18 06:09 98.4 85 18 141/63 (89) 97 01/08/18 17:26 98.3 64 16 113/63 (80) 95 I/O 01/08/18 01/08/18 01/08/18 01/09/18 01/09/18 01/09/18 07:00 15:00 23:00 07:00 15:00 23:00 Intake Total 240 ml 240 ml 480 ml Balance 240 ml 240 ml 480 ml Intake Oral 240 ml 240 ml 480 ml Result Diagram: 01/07/18 1340 01/09/18 0733 Imaging Last Impressions Chest X-Ray 01/08/18 0000 Signed Impressions: CONCLUSION: 1. Mild diffuse interstitial prominence of unknown chronicity given lack of pr ior exams. If acute, differential considerations include interstitial pneumonia . Objective Remarks GENERAL: Well-nourished, well-developed pleasant male patient in [facility]. SKIN: Warm and dry. No rash. HEENT: Normocephalic. Atraumatic. Pupils equal and round. Mucous membranes pink and moist. NECK: Supple. Trachea midline. CARDIOVASCULAR: Regular rate and rhythm. No murmur appreciated. RESPIRATORY: No accessory muscle use. Clear to auscultation, no wheezing today. Breath sounds equal bilaterally. GASTROINTESTINAL: Abdomen soft, non-tender, nondistended. Normoactive bowel sounds x4. MUSCULOSKELETAL: No obvious deformities. Extremities without clubbing, cyanosis , or edema. NEUROLOGICAL: Awake and alert. No obvious cranial nerve deficits. Motor grossly within normal limits. Moving all extremities spontaneously. Normal speech. Medications and IVs Current Medications Medications (Trade) Dose Ordered Sig/[place] Route Start Time Stop Time Status Last Admin (Tylenol) 650 mg Q4H PRN PO 01/06/18 21:45 01/08/18 12:10 (Milk Of Magnesia Liq) 30 ml DAILY PRN PO 01/06/18 21:45 01/09/18 10:37 (Mag-Al Plus Susp Liq) 30 ml Q6H PRN PO 01/06/18 21:45 01/08/18 10:08 (D50w (Vial) Inj) 50 ml UNSCH PRN IV PUSH 01/07/18 10:00 (Glucagon Inj) 1 mg UNSCH PRN OTHER 01/07/18 10:00 (NovoLOG SUPPLEMENTAL SCALE) 1 ACHS SLIDING SCALE SQ 01/07/18 12:00 01/08/18 21:57 (Duoneb Neb) 1 ampule Q2HR NEB PRN NEB 01/07/18 10:15 (Atarax) 50 mg Q6H PRN PO 01/07/18 10:45 01/08/18 21:21 (Nitrostat Sl) 0.4 mg Q5M PRN SL 01/07/18 11:15 (Catapres) 0.1 mg Q6H PRN PO 01/07/18 11:15 (Benadryl) 50 mg HS PRN PO 01/07/18 16:45 01/08/18 23:50 (Lipitor) 20 mg HS PO 01/07/18 21:00 01/08/18 21:21 (Glucophage) 500 mg DAILY PO 01/08/18 09:00 01/09/18 08:50 (Desyrel) 50 mg HS PO 01/07/18 21:00 01/08/18 21:21 (Norvasc) 10 mg DAILY PO 01/09/18 09:00 01/09/18 08:47 A/P Assessment and Plan 67-year-old male with a history of HTN, COPD, DM, anxiety and depression presented to the ED with suicidal ideations, chest pain and shortness of breath. Suicidal ideations patient with a history of anxiety and depression -continue management per psychiatry -resumed Atarax 50mg q6h prn anxiety, recommended by Dr. Wells during admission at the [facility]. Chest pain, atypical: suspect secondary to anxiety -Patient ruled out ACS previous to inpt psych admission -repeat troponin wnl and EKG with no acute ischemic changes -Nitro prn -chest pain resolved Hypertension: chronic -resumed Norvasc 5mg daily, BP still not well controlled, will increase Norvasc to 10mg daily -Clonidine prn with parameters -continue to monitor BP and adjust antihypertensives as needed -01/09 BP improved today Hyponatremia: Na 124 on 01/05, now improved to 134 -encourage po fluid intake -monitor BMP COPD: with mild exacerbation, +wheezing on exam with nonproductive cough. -Give Duoneb x1now and Continue DuoNebs q2h prn -CXR reviewed, shows mild diffuse interstitial prominence of unknown chronicity -O2 sat stable on room air, no further wheezing today, no cough/fevers/chills ; likely findings on chest xray are chronic Diabetes: chronic -Continue patient's metformin -Monitor Accu-Cheks and cover with sliding scale insulin Acute Renal Insufficiency: Cr 1.29, previously 1.0 on 01/05/18. Suspect mild dehydration -encourage po fluid intake -repeat BMP shows improvement with Cr 1.08 DVT prophylaxis: ambulation Discharge Planning The patient is medically stable for discharge. Given prescription for increased dose of Norvasc to 10mg daily. Discussed with Ivette ARANGO. Sisi Feliciano PA-C January 09, 2018 2:51 pm
[2018-01-09 18:16] VITALS: BP 149/72; PULSE 65; RESP 17; TEMP 98.4; O2SAT 97
== END 2018-01-09 21:00 | disposition home or self-care (01) | DRG 882 ==
LOC: H250 21:08
PROVIDERS: ADMIT Psychiatry & Neurology Psychiatry; ATTEND Psychiatry & Neurology Psychiatry
DX: F43.25 Adjustment disorder with mixed disturbance of emotions and conduct (principal); E87.1 Hypo-osmolality and hyponatremia; I10 Essential (primary) hypertension; J44.1 Chronic obstructive pulmonary disease with (acute) exacerbation; R07.89 Other chest pain; N28.9 Disorder of kidney and ureter, unspecified; E11.9 Type 2 diabetes mellitus without complications; Z79.84 Long term (current) use of oral hypoglycemic drugs; Z81.8 Family history of other mental and behavioral disorders; Z87.891 Personal history of nicotine dependence
CPT/HCPCS: 71046; 80048; 80053; 82948; 84484; 85025; 93005; 94664; J1815; Q0163